=== PATIENT | female | born 1975 | race Hispanic/Latino ===

== ENCOUNTER 2022-12-28 00:30 | Day surgery (SDC) | payer MEDICAID, SELFPAY ==
[2022-12-18 15:23] VITALS: BMI 35.3
--- NOTE | 2022-12-28 11:30 | WPDANESEPPF ---
Anes - Initial Pre Proc Eval Procedure: Operation Date: 12/28/22 13:00 Proposed Procedures p Screening Colonoscopy - Cali Myrick MD Date/Time: 12/28/22 11:30 Surgeon: Cali Myrick MD Pre Op Diagnosis: neoplasm screening Patient Data Age: 47 Gender: F Height: 1.52 m Weight: 82 kg Allergies Allergy/AdvReac Type Severity Reaction Status Date / Time latex Allergy Unknown Unknown Verified 12/18/22 16:20 Home Medications Medication Instructions Recorded Confirmed Type sodium,potassium,mag sulfates 17.5 See Rx Instructions PO .COMPLEX 12/12/22 12/18/22 Rx gram-3.13 gram-1.6 gram oral soln #354 mL (Suprep Bowel Prep Kit) lisinopril 10 1 tablet PO DAILY 12/18/22 12/18/22 History mg-hydrochlorothiazide 12.5 mg tablet metformin 500 mg tablet,extended 500 mg PO DAILY 12/18/22 12/18/22 History release 24 hr simvastatin 20 mg tablet 20 mg PO HS 12/18/22 12/18/22 History Patient hx anesthesia problems: none Family hx anesthesia problems: none Results Review: All pre-operative results and documents have been reviewed as part of the pre-operative evaluation. [facility] Past Medical History Medical History (Updated 12/28/22 @ 11:31 by Juan A Finch MD) Diabetes HTN (hypertension) Hyperlipidemia Social History Social History Smoking status: Never smoker Substance use: never Substance use type: does not use Living arrangements: with family Spiritual care concerns: No Anes - Eval Final PreProcedure Day of Procedure 12/28/22 11:30 Patient weight: obese Heart: regular rate and rhythm Lungs: clear to auscultation and normal air movement Airway: Mallampati scale class II Neurological: alert and oriented Last oral intake: >/= 8 hours ASA classification: III Emergent: no Anesthetic plan: proceed Anesthesia type and monitoring: general GIVS Results Review: All pre-operative results and documents have been reviewed as part of the pre-operative evaluation. Informed Consent: The patient's anesthetic plan and its attendant risks and benefits were discussed with the patient/family/POA. Questions were solicited and answers provided to the satisfaction of the patient/family/POA.
[2022-12-28 11:52] VITALS: BP 157/82; PULSE 72; RESP 20; TEMP 36.6; O2SAT 100
--- NOTE | 2022-12-28 11:52 | P.HP_ITS ---
History of Present Illness History of Present Illness Consent: Risks, benefits, and alternatives have been discussed and questions answered. Patient agrees to proceed with procedure. Chief complaint: neoplasm screening Narrative: Arti Rose is a 47 year old female Presents for neoplasia screening colonoscopy. Patient is Nepali speaking. History is obtained with the assistance of her daughter. Patient states there weight appetite bowel movements are normal. She has had vague left lower quadrant only over the last 1 week. Patient denies any blood in her stools. Family history noncontributory. Review of Systems Review of Systems: Review of systems noncontributory. [facility] Past Medical History Medical History (Updated 12/28/22 @ 11:53 by Cali Myrick MD) Diabetes HTN (hypertension) Hyperlipidemia Social History Social History Smoking status: Never smoker Substance use: never Substance use type: does not use Living arrangements: with family Spiritual care concerns: No Meds Home Medications and Allergies Home Medications Medication Instructions Recorded Confirmed Type lisinopril 10 1 tablet PO DAILY 12/18/22 12/28/22 History mg-hydrochlorothiazide 12.5 mg tablet metformin 500 mg tablet,extended 500 mg PO DAILY 12/18/22 12/28/22 History release 24 hr simvastatin 20 mg tablet 20 mg PO HS 12/18/22 12/28/22 History Allergies Allergy/AdvReac Type Severity Reaction Status Date / Time latex Allergy Unknown Unknown Verified 12/28/22 11:48 Exam Narrative: Physical exam reveals patient be alert. Vital signs stable. HEENT exam is unremarkable. Patient is anicteric. Lungs are clear to auscultation and percussion. Heart is without murmur or extra sounds. Abdominal exam bowel sounds present soft nontender with no organomegaly. Digital external rectal exam is normal. Assessment and Plan Assessment and plan (1) Encounter for screening colonoscopy: Code(s): Z12.11 - Encounter for screening for malignant neoplasm of colon Status: Acute Assessment and Plan: Patient presents today for screening colonoscopy. Further recommendations may be given after endoscopy. Because of vague left lower quadrant pain suggest initial a trial of fiber supplements. Further recommendations if findings are identified on colonoscopy or if pain persists long-term.
[2022-12-28] MEDS: LACTATED RINGERS 1,000 ML 150 ML IV CONT (12:04)
[2022-12-28 12:09] LABS: Glucose Point of Care 77 mg/dl (65-105)
[2022-12-28 12:29] VITALS: BP 113/66; PULSE 68; RESP 14; O2SAT 100
[2022-12-28 12:39] VITALS: BP 123/69; PULSE 68; RESP 15; O2SAT 100
[2022-12-28 12:49] VITALS: BP 139/107; PULSE 60; RESP 19; O2SAT 100
== END 2022-12-28 13:14 | disposition home or self-care (01) ==
PROVIDERS: PCP Physician Assistant; Visit Provider Internal Medicine Gastroenterology
PROC: 0DJD8ZZ Inspection of Lower Intestinal Tract, Via Natural or Artificial Opening Endoscopic (ICD-10-PCS; CPT 45378; principal; 2022-12-28 13:00)
DX: Z12.11 Encounter for screening for malignant neoplasm of colon (principal); K63.89 Other specified diseases of intestine; I10 Essential (primary) hypertension; E11.9 Type 2 diabetes mellitus without complications; E78.5 Hyperlipidemia, unspecified
CPT/HCPCS: 45378; 82948; J2704; J7120

== ENCOUNTER 2023-01-04 07:59 | Outpatient (CLI) | payer MEDICAID, SELFPAY ==
--- NOTE | ~2023-01-04 | CT_ITS ---
CT of the Abdomen and Pelvis: Indication: Appendiceal mass Technique: 2.5 mm axial scans were obtained through the abdomen and pelvis following intravenous adm inistration of 100 cc of Omnipaque 350. Dose reduction technique was used on this scan by utilizing a utomated exposure control and iterative reconstruction technique. The dose-length product (DLP) was 7 09.00 mGy-cm. Findings: Scans through the lung bases are unremarkable. The liver, spleen, pancreas, gallbladder, adrenals and kidneys are within normal limits. No evidence of aortic aneurysm. No lymphadenopathy. No bowel obstruction or bowel wall thickening. There is dilatation of the base of the appendix at its junction with the cecum to 2 cm in diameter, with the remainder of the appendix mildly prominent at 9-10 mm in diameter. No periappendiceal inflammatory change identified. No definite mural nodularity or mass lesion clearly identified on this exam. Images through the pelvis were performed. Urinary bladder unremarkable. 2.9 cm left ovarian cyst pres ent. No ascites. 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 2.9 cm left ovarian cyst. Reviewed, dictated and finalized at location . Impression: Dilated appendix without inflammatory change, consistent with appendiceal mucoc hollie. 2.9 cm left ovarian cyst.
[2023-01-04 08:26] LABS: Estimated Glomerular Filt Rate > 60
== END 2023-01-04 08:00 | disposition home or self-care (01) ==
LOC: ANHIMG 08:04
PROVIDERS: PCP Physician Assistant; Visit Provider Internal Medicine Gastroenterology
DX: K38.8 Other specified diseases of appendix (principal); N83.202 Unspecified ovarian cyst, left side
CPT/HCPCS: 74177; Q9967

== ENCOUNTER 2023-01-14 19:39 | Emergency (ER) | payer MEDICAID, SELFPAY ==
[2023-01-14 20:41] VITALS: BP 148/80; PULSE 88; RESP 16; TEMP 36.6; O2SAT 100
[2023-01-14 21:06] LABS: Basophils Percent Auto 0.4 % (0.2-1.2); Eosinophils Absolute Auto 0.2 K/mm3 (0-0.3); Hematocrit 38.7 % (37.0-47.0); Immature Granulocyte Absolute 0.04 K/mm3 (0.00-0.031); Immature Granulocyte Percent A 0.4 % (0-0.5); Lymphocytes Absolute Auto 1.76 K/mm3 (0.9-3.2); Lymphocytes Percent Auto 15.6 % (18.3-44.2); Mean Corpuscular HGB Conc 33.6 g/dl (32-36); Mean Corpuscular Volume 86.2 fl (80-100); Mean Platelet Volume 10.4 fl (7.4-10.4); Monocytes Absolute Auto 0.6 K/mm3 (0.1-0.6); Monocytes Percent Auto 5.3 % (2.6-8.5); Neutrophils Absolute Auto 8.6 K/mm3 (1.3-6.7); Neutrophils Percent Auto 76.3 % (45.5-73.1); Platelet Count Result 312 k/mm3 (150-375); Red Blood Count 4.49 M/mm3 (4.2-5.4); Red Cell Distribution Width 13.2 % (11.5-14.5); White Blood Count 11.3 K/mm3 (4.5-10.0)
[2023-01-14 21:16] LABS: Alanine Aminotransferase 22 U/L (6-35); Albumin Level 4.5 g/dL (3.5-5.1); Alkaline Phosphatase 102 U/L (38-126); Anion Gap 9 mmol/L (8-16); Aspartate Amino Transferase 26 U/L (14-36); Bilirubin,Total 0.5 mg/dL (0.2-1.3); Blood Urea Nitrogen 8 mg/dL (7-17); Calcium 8.9 mg/dL (8.4-10.2); Carbon Dioxide 28 mmol/L (22-30); Chloride 102 mmol/L (98-107); Estimated Glomerular Filt Rate > 60; Glucose 119 mg/dL (65-110); Lipase 96 U/L (23-300); Potassium 3.8 mmol/L (3.4-5.0); Sodium 139 mmol/L (137-145)
[2023-01-14 22:16] LABS: Appearance Urine Clear (Clear); Bilirubin Urine Negative (Negative); Blood Urine Negative (Negative); Color Urine Yellow (Yellow); Glucose Urine UA Negative (Negative); Ketones Urine Negative (Negative); Leukocyte Esterase Ur Negative LEU/UL (Negative); Nitrate Urine Negative (Negative); Protein Urine Negative (Negative); Specific Grav Ur 1.008 (1.001-1.035); Urobilinogen Urine 0.2 mg/dL (<2.0); pH Urine 6.5 (5.0-9.0)
[2023-01-14 22:20] LABS: Add Urine Microscopic? NO
[2023-01-14 22:23] VITALS: BP 152/93; PULSE 78; RESP 14; TEMP 36.6; O2SAT 100
--- NOTE | 2023-01-15 01:32 | PC.NURSE ---
This RN apologized to pt for continued wait and asked if she needed anything. Offered to ask for pain medication while she waits to be seen by ER provider. Pt declines and states she wishes to leave. Informed pt of risks of leaving such as pain, worsening of condition, and . Instructed pt that if she starts to feel worse or develop new symptoms to seek medical attention. Pt verbalized understanding, signed AMA form, and ambulated out of department with steady gait accompanied by her daughter.
[2023-01-15 01:35] VITALS: BP 154/87; PULSE 87; RESP 18; O2SAT 99
== END 2023-01-15 01:38 | disposition left against medical advice (07) ==
LOC: ANHED 01-15 00:50
PROVIDERS: Emergency Provider Emergency Medicine; PCP Physician Assistant
DX: R10.9 Unspecified abdominal pain (principal)
CPT/HCPCS: 36415; 80053; 81003; 81025; 83690; 85025; 99199

== ENCOUNTER 2023-01-21 11:54 | Outpatient (CLI) | payer MEDICAID, SELFPAY ==
--- NOTE | 2023-01-21 13:46 | ECG_ITS ---
Measurements Intervals [place] Rate: P: [place]: QRS: QRSD: T: QT: QTc: Interpretive Statements SINUS RHYTHM NONSPECIFIC ST AND T WAVE ABNORMALITY NO PRIOR ECG AVAILABLE FOR COMPARISON Electronically Signed On 01-22-2023 15:00:10 CDT by Kala Mcgee M.D.
== END 2023-01-21 11:55 | disposition home or self-care (01) ==
PROVIDERS: PCP Physician Assistant; Visit Provider Surgery
DX: Z01.810 Encounter for preprocedural cardiovascular examination (principal); I10 Essential (primary) hypertension; R94.31 Abnormal electrocardiogram [ECG] [EKG]
CPT/HCPCS: 93005

== ENCOUNTER 2023-01-25 00:50 | Day surgery (SDC) | payer MEDICAID, SELFPAY ==
--- NOTE | 2023-01-21 12:43 | PC.NURSE ---
Report to the Outpatient Waiting Room, entrance under the green pavilion located off [facility], at time __1100 AM on date 01/25/23 . Planned Procedure Time: _1:00 PM . Time changes happen often and if your time is changed the preop area will call you the afternoon before. - You and your visitor will be asked to self-screen and do not enter if you have any COVID symptoms. - Only one visitor is requested with a max of two and NO children visitors are allowed at this time. - The patient visitor may be requested to leave or wait in car when not with patient due to distancing restrictions. - A mask is optional within the hospital at this time. Patients may have clear liquids (water, carbonated beverages, clear teas, apple juice) until 3 hours prior to surgery with a maximum of 20 ounces. - No food from midnight until time of surgery - Infants may have breast milk until 4 hours before surgery, formula 6 hours prior to surgery. - Children will be allowed to drink immediately following surgery. If applicable, please bring a bottle or sippy cup to assist with drinking. Juice, water, soda, and popsicles are readily available. For infants on formula, please bring formula the day of surgery. Pacifiers are allowed. Take the following medications with a SIP of water the morning of surgery: ____NONE DO NOT STOP ANY OF YOUR OTHER PRESCRIPTION MEDICATIONS PRIOR TO SURGERY ?EXCEPT THE FOLLOWING Medications to discontinue per physician CALCIUM WITH VITAMIN D HOLD 3 DAYS PRE OP.LAST DOSE 01/21/23 Please no make-up, nail paraguayan, hairspray, perfume, deodorant, or body powder the day of surgery. No jewelry (including any body piercings) or valuables the day of surgery, leave them at home. Please take a shower or bath the night before, or the morning of, surgery with an antibacterial soap. Wear comfortable, loose fitting clothing. Children are encouraged to wear pajamas. - Jewelry must be removed prior to entering the operating room. Rings and piercings that are not removed may be cut off. - The hospital will not accept responsibility for valuables. - Please leave all valuables, including medications, at home the day of surgery. If you are going home after surgery, a licensed cart driver must drive you home. - NO public transportation without another adult if you receive anesthesia. - We recommend that an adult stay with you for 24 hours following discharge. - We also recommend that you do not drive, make important decision, drink alcoholic beverages, or take any drugs that were not prescribed by your health care provider for at least 24 hours after your discharge time. For Pediatric surgeries, we recommend two adults accompany the child home. Follow any additional instructions given to you from your surgeon. If you or anyone in your household have experienced Covid symptoms in the past week, please notify your surgeon or the nurse liaison at the phone number below for possible testing. VERBAL AND WRITTEN instructions given to _PATIENT VIA SERVER PROGRAMMER SAROJ # [id number] and asked if any additional questions and then verbalized understanding. Patient advised to call surgeon office or pre surgery nurse liaison [phone] if any additional questions.
[2023-01-21 13:09] VITALS: BP 138/90; PULSE 83; RESP 18; TEMP 37; O2SAT 100; BMI 34.5
--- NOTE | 2023-01-24 16:22 | WPDANESEPPF ---
Anes - Initial Pre Proc Eval Procedure: Operation Date: 01/25/23 08:30 Proposed Procedures p Laparoscopic Appendectomy, Possible Open - Jose Osullivan DO Date/Time: 01/24/23 16:22 Surgeon: Jose Osullivan DO Pre Op Diagnosis: Mass Appendix, Abnormal CT of Abdomen Patient Data Age: 47 Gender: F Height: 1.52 m Weight: 80.2 kg Last Vital Signs Temp 37.0 C 01/21/23 13:09 Pulse 83 01/21/23 13:09 Resp 18 01/21/23 13:09 BP 138/90 01/21/23 13:09 Pulse Ox 100 01/21/23 13:09 O2 Del Method Room Air 01/21/23 13:09 Allergies Allergy/AdvReac Type Severity Reaction Status Date / Time latex Allergy Intermediate Rash Verified 01/25/23 07:07 Home Medications Medication Instructions Recorded Confirmed Type lisinopril 10 1 tablet PO DAILY 12/18/22 01/21/23 History mg-hydrochlorothiazide 12.5 mg tablet metformin 500 mg tablet,extended 500 mg PO DAILY 12/18/22 01/21/23 History release 24 hr simvastatin 20 mg tablet 20 mg PO HS 12/18/22 01/21/23 History calcium carbonate 600 mg-vitamin 1 tablet PO DAILY 01/21/23 01/21/23 History D3 10 mcg (400 unit) tablet (Calcium 600 + D(3)) Patient hx anesthesia problems: none Family hx anesthesia problems: none Results Review: All pre-operative results and documents have been reviewed as part of the pre-operative evaluation. [facility] Past Medical History Medical History Diabetes HTN (hypertension) Hyperlipidemia Social History Social History Smoking status: Never smoker Substance use: never Substance use type: does not use Living arrangements: with family Spiritual care concerns: No Anes - Eval Final PreProcedure Day of Procedure 01/24/23 16:22 Patient weight: obese Heart: regular rate and rhythm Lungs: clear to auscultation and normal air movement Airway: Mallampati scale class II Neurological: alert and oriented Last oral intake: >/= 8 hours ASA classification: III Emergent: no Anesthetic plan: proceed Anesthesia type and monitoring: general ETT Results Review: All pre-operative results and documents have been reviewed as part of the pre-operative evaluation. Informed Consent: The patient's anesthetic plan and its attendant risks and benefits were discussed with the patient/family/POA. Questions were solicited and answers provided to the satisfaction of the patient/family/POA.
[2023-01-25] VITALS (8 sets, daily range): BP systolic 111–152; BP diastolic 61–85; PULSE 67–83; RESP 12–16; TEMP 36.3; O2SAT 96–100
[2023-01-25] MEDS: LACTATED RINGERS 1,000 ML 30 ML IV CONT ×2 (07:24→10:05)
[2023-01-25] MEDS: KETOROLAC 15 MG/ML VIAL (*BKC) IV PUSH (07:26)
[2023-01-25 07:57] LABS: Glucose Point of Care 113 mg/dl (65-105)
--- NOTE | 2023-01-25 08:37 | WPDHPUPDATE1 ---
History and Physical Update Update Date/Time: 01/25/23 08:37 History and Physical has been reviewed, including an updated exam of the patient. There are NO changes in the patient's condition. Risks, benefits, and alternatives have been discussed and questions answered. Patient agrees to proceed with procedure.
[2023-01-25] MEDS: ceFAZolin 2 GM/D5W 50 ML 2 GM/50 ML BAG IVPB (09:00)
[2023-01-25] MEDS: metroNIDAZOLE 500 MG/ISO 100ML 500 MG/100 ML BAG 100 MG IVPB (09:12)
[2023-01-25] MEDS: BUPIVACAINE/EPINEPHRINE 0.5% 50 ML VIAL 30 ML INFILTRATE (09:25)
--- NOTE | 2023-01-25 09:50 | W.PM.PROC2 ---
Procedure Note - Detailed Date of Procedure 01/25/23 Pre-op Diagnosis Mass Appendix, Abnormal CT of Abdomen Post-op Diagnosis Same Procedure Performed Laparoscopic appendectomy Surgeon Jose Osullivan, DO Anesthesia General and Local (0.5% bupivicaine with epinephrine) Indications This is a 47-year-old woman who presented with an abnormal finding of the appendix. She is experiencing right-sided abdominal pain for the past year. She underwent colonoscopy recently and was found to have a mass at the appendiceal orifice. She then underwent CT of her abdomen and pelvis which showed a dilated appendix consistent with mucocele. Discussions were made with the patient about treatment options and decision was made to proceed with laparoscopic appendectomy, possible open Findings Laparoscopic appendectomy was performed. The appendix appeared mildly dilated and was then dilated it about 2 cm at the base. The mass did appear to extend into the started the cecum, therefore when the appendix removed, this was extended onto the base cecum as well. A 60 mm echelon stapler was used to come across the end of the cecum to remove the corner of the cecum and the appendix. No other intra-abdominal abnormalities were noted. The appendix was removed and sent to the lab for pathology. Description of Procedure Procedure as well as risks, benefits, and alternatives were explained to the patient. The patient agreed to proceed. Written consent was obtained and placed in chart prior to procedure. The patient was brought back to surgical suite. She was placed supine on operating table. Time-out was done to confirm the patient and procedure. The patient was then intubated by the Anesthesia Department. Her abdomen was prepped and draped in sterile fashion using chlorhexidine prep. A 5 mm incision was made just to the left of the patient's umbilicus and a 5 mm Optiview trocar was advanced through the abdominal layers under direct visualization. Once inside the peritoneal cavity, carbon dioxide insufflation was used to create a pneumoperitoneum. The camera was inserted and the abdomen was inspected. No immediate abnormalities were identified. The patient was then placed in slight Trendelenburg position and rotated to the left. A 5 mm incision was made in the suprapubic region in midline and a 5 mm trocar was inserted under direct visualization. A 12 mm incision was made in the left lower quadrant and a 12 mm trocar was inserted under direct visualization. The right lower quadrant was carefully inspected. The cecum was identified and then this was traced back to the appendix. The appendix was identified and grasped at the mesoappendix and lifted anteriorly. Careful blunt dissection was carried out at the base of the appendix through the mesoappendix using a [place] grasper. An echelon 60 mm blue load stapler was then advanced across the end of the cecum and clamped and fired. A white reload was then clamped across the mesoappendix and fired. This freed up our appendix completely. It was then placed in an EndoCatch bag and removed through the left lower quadrant port. The staple lines were then inspected. Hemostasis appeared adequate and the staple lines appeared secure. The area was then irrigated with sterile saline. The pelvis was then carefully inspected and irrigated with sterile saline as well and the remainder of the abdomen was carefully inspected. The patient was then flattened out in bed. One final inspection was made around the abdominal cavity and no other abnormalities were seen. The left lower quadrant port was removed and a Jeff-Stiven cone was used to approximate the fascia with an 0 Vicryl simple interrupted suture. The remaining ports were then removed under direct visualization. The camera was removed and the pneumoperitoneum was released. 0.5% bupivacaine with epinephrine was infiltrated locally around each of the incisions. The skin of the incisi
[2023-01-25 10:46] LABS: Glucose Point of Care 127 mg/dl (65-105)
[2023-01-25] MEDS: fentaNYL CITRATE INJ (*CRX) 100 MCG/2 ML VIAL 25 MCG IV PUSH ×2 (11:09→11:20)
[2023-01-25] MEDS: oxyCODONE HCL (*CRX) 5 MG TAB IR PO (11:20)
== END 2023-01-25 12:40 | disposition home or self-care (01) ==
PROVIDERS: PCP Physician Assistant; Visit Provider Surgery
PROC: 0DTJ4ZZ Resection of Appendix, Percutaneous Endoscopic Approach (ICD-10-PCS; CPT 44970; principal; 2023-01-25 08:30)
DX: K38.8 Other specified diseases of appendix (principal); I10 Essential (primary) hypertension; E11.9 Type 2 diabetes mellitus without complications; E78.5 Hyperlipidemia, unspecified; E66.9 Obesity, unspecified; Z68.34 Body mass index [BMI] 34.0-34.9, adult; Z79.84 Long term (current) use of oral hypoglycemic drugs
CPT/HCPCS: 44970; 82948; 88304; 88342; A9270; J0690; J1100; J1170; J1885; J2250; J2405; J2704; J2710; J3010; J7120

== ENCOUNTER 2023-07-29 07:24 | Outpatient (CLI) | payer MEDICAID, SELFPAY ==
--- NOTE | ~2023-07-29 | CT_ITS ---
EXAMINATION: CT abdomen pelvis w con DATE: 07/29/2023 08:13 INDICATION: Left lower quadrant pain TECHNIQUE: Computed tomography (CT) of the abdomen and pelvis was performed with 100 cc Omnipaque 350 intravenous contrast. The dose-length product was 726.43 mGy-cm. Automated exposure control and iter ative reconstruction technique were employed. COMPARISON: CT dated 01/04/2023. FINDINGS: Lung bases are unremarkable. Heart size normal. No significant pleural or pericardial effus ion. Fatty infiltration of the liver. There are changes of previous appendectomy. No significant vasc ular abnormality. Trace free fluid in the pelvis. Nonobstructive bowel pattern. No evidence for diver ticulitis. No free air. Focal fatty infiltration there is a small periumbilical hernia containing fat . No evidence for malnutrition. There is bilateral sacroiliitis. Mild lumbar spondylosis with grade 1 spondylolisthesis at L5-S1 secondary to facet hypertrophy. IMPRESSION: 1. No acute abdominal abnormality. Reviewed, dictated and finalized at location B.
[2023-07-29 07:59] LABS: Estimated Glomerular Filt Rate > 60
== END 2023-07-29 07:25 | disposition home or self-care (01) ==
PROVIDERS: PCP Physician Assistant; Visit Provider Surgery
DX: R10.32 Left lower quadrant pain (principal)
CPT/HCPCS: 74177; Q9967

== ENCOUNTER 2023-10-23 14:49 | Outpatient (RCR) | payer OTHER, SELFPAY ==
--- NOTE | 2023-10-23 16:14 | PTOPEVAL1 ---
Assessment and note entered by Kavin Mariscal Evaluation Information Assessment Status Evaluation Diagnosis right ankle sprain Onset 09/13/23 Subjective Information Pt. reports she injured the right ankle on September 13. Pt. reports she was coming down steps and missed a step and slipped twisting the right ankle. Pt. reports she went to the doctor the next day. Pt. reports that she underwent xray , which was negative. She reports that she is currently having pain around the ankle and upwards toward the knee. Pain is most notable with walking. She report she does have some pain at night when laying down and uses ointment. Pt. reports that her pain has remained the same since the initial injury. Pt. reports that the ankle will typically swell later in the day. Pt. reports that her injury has made it difficult for her to complete her daily chores and is currently off work due to her injury. She reports that her goal for therapy is to be able to return to walking normally. Reported Pain Level Pain Score 8: Self Report Assessment PT Clinical Summary Pt. is a 47 year old female who enters the clinic regarding right ankle sprain. Pt. requires use of an filenet architect during treatment. She presents with indication of right ankle inversion sprain. Post Rx she does describe some issues in regards to sensation at the lateral right ankle. She currently presents with impaired gait, impaired right ankle ROM, impaired l.e. strength and pain. Continued skilled PT is indicated in order to improve these areas to allow the pt. to be able to return to all normal IADL's without pain or limitation. Plan of Care Interventions Electrical Stimulation,Hot Pack/Cold Pack,Manual Therapy,Neuro Re-education,Patient/Caregiver Educati,Therapeutic Activities,Therapeutic Exercise PT Services Indicated Yes Treatment Frequency and 2x/week x 8 visits Duration These treatments will address the objective and functional deficits as defined above. The patient will be advanced safely and appropriately in order for the patient to progress towards his/her prior level of function. Additional exercises will be introduced and as well as a comprehensive home exercise program upon discharge, if needed, ?to ensure carryover of functional gains achieved in the clinic. This treatment plan has been reviewed and agreement upon by the patient.
--- NOTE | 2023-10-23 16:28 | OPREHPOC ---
Outpatient Therapy Plan of Care This is a Multidisciplinary Plan of Care that may contain components documented by all disciplines (PT, OT, and ST.) PT Problem 1 PT Problem #1 Knowledge Deficit PT Goal 1 Goal Pt. will be independent with a HEP addressing ROM jew at the right ankle. Target Visit 2 PT Problem 2 PT Problem #2 Impaired Range of Motion PT Goal 1 Goal -Pt. will achieve 60 degrees PF, 10 degrees DF, 40 degrees inversion and 16 degrees eversion active ROM at the right ankle Target Visit 8 PT Problem 3 PT Problem #3 Impaired Strength PT Goal 1 Goal Pt. will present with normal right ankle PF strength completing 10 single limb heel raises on right without pain. Target Visit 8 PT Problem 4 PT Problem #4 Impaired Gait PT Goal 1 Goal Pt. will ambulate for duration of 6 minutes over a distance of 1000' or greater demonstrating no deviation in gait. Target Visit 8
--- NOTE | 2023-10-30 09:53 | PCPTNOTE ---
Pt's visit was cancelled today due to no insurance auth.
--- NOTE | 2023-11-06 08:46 | PTOPDC ---
Assessment and note entered by Kavin Mariscal Discharge Information Assessment Status Discharge - Pt Not Present Diagnosis right ankle sprain Onset 09/13/23 Subjective Information Assessment PT Clinical Summary Insurance denied all pt. treatment. She completed her initial evaluation and was provided a HEP addressing ROM anabaptism and gentle strengthening. Insurance provided no appeal process and therefore pt. will be discharged from our care. The front office contacted the pt. and she was comfortable completing exercise on her own at this time. Refer to the initial evaluation for discharge status. Plan of Care PT Services Indicated D/C from PT at this time.
== END 2023-11-06 12:18 | disposition home or self-care (01) ==
LOC: ANHPT 14:49
PROVIDERS: PCP Physician Assistant; Visit Provider Physician Assistant
DX: S93.401D Sprain of unspecified ligament of right ankle, subsequent encounter (principal)
CPT/HCPCS: 97110; 97161

== ENCOUNTER 2025-01-21 13:07 | Emergency (ER) | payer OTHER, SELFPAY ==
--- NOTE | ~2025-01-21 | CT_ITS ---
History: Headache PROCEDURE: CT head without contrast. COMPARISON: None TECHNIQUE: Axial imaging of the head performed from the skull base to the vertex without IV contrast. Sagittal a nd coronal reformations obtained. DLP: 605 mGy-cm FINDINGS: The ventricles are normal in size, shape and position. There is no mass, mass effect or midline shift. There is no abnormal extra-axial fluid collection or intracranial hemorrhage. Visualized paranasal sinuses are clear. The mastoid air cells are well aerated. No acute displaced fractures within the overlying cranium. Impression: No acute intracranial hemorrhage or suspicious mass effect. Reviewed, dictated and finalized at location A. Impression: No acute intracranial hemorrhage or suspicious mass effect.
[2025-01-21 13:12] VITALS: BP 181/84; PULSE 88; RESP 18; TEMP 36.6; O2SAT 100
--- OUTSIDE RECORDS SUMMARY | 2025-01-21 13:24 | XMS_ITS | Clinical Summary ---
Author Organization [facility] Address [address] [place] [id number] Care Team Providers Care Electronic Bench Technician Name Role Phone None, Provider MD Primary Care Provider Unavaila ble Allergies No known active allergies Social History Tobacco Use Types Packs/Day Years Used Date Smoking Tobacco: Never Smokeless Tobacco: Never Alcohol Use Standard Drinks/Week Comments Never 0 (1 standard drink = 0.6 oz pur e alcohol) AUDIT-C Answer Date Recorded Q1: How often do you have a drink containing alc ohol? Never 02/23/2021 Average Number of Drinks Not on file 021 Frequency of Binge Drinking Not on file 03/2021 Comments Unknown Sex and Gender Information Value Date Recorded Sex Assigned at Not on file Legal Sex Female 4:16 PM CDT Gender Identity Not on file Sexual Orientation Not on file Last Filed Vital Signs Vital Sign Reading Time Taken Comments Blood Pressure 156/85 02/23/2021 5:52 PM CDT Pulse 112 02/23/2021 4:23 PM CDT Temperature 37.2 C (98.9 F) 02/23/2021 4:23 PM CDT Respiratory Rate 17 02/23/2021 5:52 PM CDT Oxygen Saturation 99% 02/23/2021 5:52 PM CDT Inhaled Oxygen Concentration - - Weight 82.8 kg (182 lb 8.7 oz) 02/23/2021 4:23 P M CDT Height 152 cm (4' 11.84 ) 02/23/2021 4:23 PM CDT Body Mass Index 35.84 02/23/2021 4:23 PM CDT Plan of Treatment Health Maintenance Due Date Last Done Comments Cervical Cancer Screening Pa p Smear (Age 30 to 64) Every 3 Years 1975 Colorectal Cancer Screening Colonoscopy (10 Years) 1975 Annual Physical 1978 Hepatitis C 1993 DTaP, Tdap and Td Vaccines ( 1 - Tdap) 1994 Hepatitis B Vaccines (1 of 3 - 19+ 3-dose series) 1994 Cervical Cancer Screening Pa p with HPV Testing (Age 30 to 64) Every 5 Years 2005 Cervical Cancer Screening with HPV 2005 Mammogram Screening 2015 COVID-19 Vaccine (2023-2 5 season) 2024 Meningococcal B Vaccine Aged Out No l onger eligible based on patient's age to complete this topic Meningococcal Vaccine Aged Out No tyrese janis eligible based on patient's age to complete this topic Pneumococcal Vaccine: Pediat rics (0 to 5 Years) and At-Risk Patients (6 to 64 Years) Aged Out No longer eligible b ased on patient's age to complete this topic RSV Immunizations Under 20 Months Aged Out No longer eligible based on patient's age to complete this topic Care Teams Electronic Bench Technician Relationship Specialty Start Date End Date None, Provider, PCP - General 02/23/21
--- OUTSIDE RECORDS SUMMARY | 2025-01-21 13:24 | XMS_ITS | Data Portability ---
Author Organization [facility] Address [address] [place] [address] Care Team Providers Care Bead Maker Name Role Phone MAXIMINO MYERS Rn Wellness SAROJ JACKSON Primary Care Provider Assessment No assessment recorded. Plan of Treatment Reminders Order Date Submit Date Provider Last Modified By Organization Details Last Modified Time Details Appointments NEW PATIENT 2024 01:00P M JOSEFA HAYNES PA-C Not available Not available Not available ANY 2024 09:30A M RAVI BUENROSTRO Not available Not available Not available ANY 2024 11:00A M RAVI BUENROSTRO Not available Not available Not available Lab None recorded. Referral None recorded. Procedures None recorded. Surgeries None recorded. Imaging unlisted imaging order [address] (Imaging), [address] [place] [address], [place], [address], 12/30/2024 08:22:12 Medication Orders omeprazol e 20 mg capsule,d elayed release 2023 024 [facility], [address] [place] [address], [id number], 07/22/2024 13:28:44 naproxen 500 mg tablet 2023 024 [facility], [facility], [place], [id number], 07/15/2024 13:44:00 Medrol (Jayme) 4 mg tablets in a dose pack 2023 024 [facility], [address] [place] [address], [id number], 07/16/2024 14:09:52 triamcino lone acetonide 0.1 % topical cream 2023 024 [facility], [address] [place] [address], [id number], 07/15/2024 13:43:58 duloxetin e 30 mg capsule,d elayed release 2023 024 [facility], [address] [place] [address], [id number], 07/16/2024 14:09:54 naproxen 500 mg tablet 2023 024 [facility], [address] [place] [address], [id number], 05/19/2024 17:06:30 Medrol (Jayme) 4 mg tablets in a dose pack 2023 024 [facility], [address] [place] [address], [id number], 05/19/2024 17:06:30 triamcino lone acetonide 0.1 % topical cream 2023 024 [facility], [address] [place] [address], [id number], 05/19/2024 17:06:29 duloxetin e 60 mg capsule,d elayed release 2023 024 [facility], [address] [place] [address], [id number], 07/16/2024 14:09:50 Kenalog 40 mg/mL suspensio n for injection 2023 [email or web address] Not available 05/27/2024 15:13:09 naproxen 500 mg tablet 2023 [facility], [address] [place] [address], [id number], 05/05/2024 17:13:50 Medrol (Jayme) 4 mg tablets in a dose pack 2023 [facility], [address] [place] [address], [id number], 05/07/2024 15:23:08 triamcino lone acetonide 0.1 % topical cream 2023 [facility], [address] [place] [address], [id number], 05/05/2024 17:13:53 duloxetin e 30 mg capsule,d elayed release 2023 [facility], [address] [place] [address], [id number], 05/07/2024 15:23:10 duloxetin e 60 mg capsule,d elayed release 2023 [facility], [address] [place] [address], [id number], 05/07/2024 15:23:10 Kenalog 40 mg/mL suspensio n for injection 2023 [email or web address] Not available 05/06/2024 10:04:26 naproxen 500 mg tablet 2023 [facility], [address] [place] [address], [id number], 04/14/2024 17:05:21 Medrol (Jayme) 4 mg tablets in a dose pack 2023 [facility], [address], [place], [id number], 04/14/2024 17:05:22 triamcino lone acetonide 0.1 % topical cream 2023 024 [facility], [address] [place] [address], [id number], 04/14/2024 17:05:25 gabapenti n 600 mg tablet 2023 024 [facility], [address] [place] [address], [id number], 04/14/2024 17:05:22 Kenalog 40 mg/mL suspensio n for injection 2023 [email or web address] Not available 04/15/2024 14:30:57 Patient TargetsNo targets recorded. Patient InstructionsNo instructions recorded. Reason for Referral None Reported. Results Created Date Observation Date Name Description Value Unit Range Abnormal Flag Note LastModifiedBy Organization Detail LastModifiedTime 03/26/20 24 03/25/2024 lab* No observ ation record ed. [email or web address] [facility] [address] [place], [address], 04/02/2024 08:17:06 03/26/20 24 03/25/2024 lab* No observ ation record ed. [email or web address] [facility] [address] [place], [address], 04/02/2024 08:17:17 Result Notes None recorded. Problems Name Problem SNOMED Code Status Onset Date Resolution Date Notes Provider Name and Address Organization Details Recorded Time Blood glucose outside reference range 520210162 Active 2020 eZ Dillon MD Attn: Kandice webster,[address] [place], [address], [facility] 11:53:24 Left lower quadrant pain 986278617 Active 2020 Ze Dillon MD Attn: Accountin g,[address] [facility], [place], [address], [place] [facility] 11:53:37 Blurring of visual image 912693811 Active 2020 Ze Dillon MD Attn: Accountin g,[address] [facility], [place], [address], [place] [facility] 11:53:48 Obesity 333221424 Active 2020 Ze Dillon MD Attn: Accountin g,[address] [facility], [place], [address], [place] [facility] 11:53:58 Body mass index 30+ - obesity 284754960 Active 2020 34.4 Ze Dillon MD Attn: Accountin g,[address] [facility], [place], [address], [place] [facility] 11:54:29 Bilateral heel pain 6887443552737 9108 Active 2020 Ze Dillon MD Attn: Accountin g,[address] [facility], [place], [address], [place] [facility] 16:59:41 At increased risk for latex allergy response 485357036 Active 2020 Ze Dillon MD Attn: Accountin g,[address] [facility], [place], [address], [place] [facility] 1 17:03:36 Active immunizatio n Active 2020 Ze Dillon MD Attn: Accountin g,[address] [facility], [place], [address], [place] - [facility] 1 17:03:55 Plantar fasciitis of right foot 5724178870909 9101 Active 2021 RAVI BUENROSTRO Attn: Accountin g,[address] [facility], [place], [address], [place] [facility] 2 10:53:08 Type 2 diabetes mellitus 00446923 Active 2022 RAVI BUENROSTRO Attn: Kandice eleanor,[address] [facility], [place], [address], [place] - [facility] 3 09:34:21 History of surgery 595429017 Active 2022 RAVI BUENROSTRO Attn: Accountskye eleanor,[address] [facility], [place], [address], [place] [facility] 3 15:59:36 Left upper quadrant pain 272044387 Active 2022 RAVI BUENROSTRO Attn: Accountskye eleanor,[address] [facility], [place], [address], [place] [facility] 3 08:23:07 Muscle pain 51177714 Active 2022 RAVI BUENROSTRO Attn: Accountskey webster,[address] [facility], [place], [address], [place] [facility] 3 08:23:08 Mass of left breast 8336126000126 9103 Active 2022 RAVI BUENROSTRO Attn: Accountskye eleanor,[address] [facility], [place], [address], [place] [facility] 3 09:07:10 Sprain of right ankle 6673821005614 9105 Active 2022 RAVI BUENROSTRO Attn: Accountskye eleanor,[address] [place], [address], [place] [facility] 3 15:09:41 Major depressive disorder 191029794 Active 2023 RAVI BUENROSTRO Attn: Accountskye webster,[address] [facility], [place], [address], [place] [facility] 4 09:07:44 Female stress incontinenc e 58228452 Active 2023 RAVI BUENROSTRO Attn: Accountskye webster,[address] [place], [address], [place] [facility] 4 09:33:10 Benign neoplastic disease 88873955 Active Merrill Gupta MD Attn: Kandice webster,[address] [facility], [place], [address], [facility] - [facility] 4 16:36:19 Problem Notes None recorded. Procedures Surgical History Date Name Laterality Status Provider Name and Address Organization Details Recorded Time 4 Injection completed MAT REYNAGA DPM [address], [place], [address], [facility] - [facility] 05/19/2024 15:52:23 4 Injection completed MAT REYNAGA DPM [address], [place], [address], [facility] - [facility] 05/05/2024 16:17:18 4 Injection completed MAT REYNAGA DPM [address], [place], [address], [facility] - [facility] 04/14/2024 16:42:49 3 Date of Last Mammogram completed Yumiko Childress MA [place] - [facility] 10/09/2024 11:19:53 1 Date of Last Pap Smear completed RAVI BARAJAS Attn: Accounting,[address] [place], [address], [facility] - [facility] 03/09/2021 11:10:57 4 Generic Procedure completed Merrill Gupta MD Attn: Accounting,[address] [place], [address], [place] [facility] 09/10/2014 16:36:19 Imaging Results Imaging Date Name Status LastModified by Organizatio n Details LastModified Time 03/25/2024 lab* completed [email or web address] [facility] [address] [facility], [place], [address], 04/02/2024 08:17:06 03/25/2024 lab* completed [facility] [address] [place], [address], 04/02/2024 08:17:17 Procedure Notes None recorded. Medical Equipment None Reported. Allergies No known drug allergies Medications Name Sig Start Date Stop Date Status Note LastModified by Organization Details LastModified Time multivitami n tablet Take 1 tablet every day by oral route. 2020 active Not Available Not Available Not Avai lable amoxicillin 500 mg capsule Take 1 capsule every 8 hours by oral route for 7 days. 03/03 completed Not Available Not Available Not Available Miralax 17 gram/dose oral powder Take 17 g every day by oral route. 06/04 completed Not Available Not Available Not Available metformin 500 mg tablet Take 1 tablet every day by oral route for 90 days. 2024 active Not Available Not Available Not Avai lable venlafaxine ER 37.5 mg capsule,ext ended release 24 hr TAKE ONE CAPSULE BY MOUTH AT BEDTIME active Not Available Not Available No t Available venlafaxine ER 75 mg capsule,ext ended release 24 hr TAKE ONE CAPSULE BY MOUTH EVERY MORNING active Not Available Not Available No t Available gabapentin 600 mg tablet Take 1 tablet 3 times a day by oral route for 30 days. 2023 active Not Available Not Available Not Avai lable hydrocodone 5 mg-acetamin ophen 325 mg tablet TAKE 1 TABLET BY MOUTH EVERY 4 HOURS NEEDED FOR PAIN 06/04 completed Not Available Not Available Not Available Anucort-HC 25 mg suppository INSERT 1 SUPPOSITO RY RECTALLY THREE TIMES DAILY 06/04 completed Not Available Not Available Not Available peg-electro lyte solution 420 gram oral solution TAKE DIRECTED active Not Available Not Available No t Available triamcinolo ne acetonide 0.1 % topical cream APPLY A THIN LAYER TO THE AFFECTED AREA(S) BY TOPICAL ROUTE 2 TIMES PER DAY active Not Available Not Available No t Available amoxicillin 500 mg tablet TAKE ONE TABLET BY MOUTH EVERY 8 HOURS UNTIL ALL TAKEN 03/03 completed Not Available Not Available Not Available Kenalog 40 mg/mL suspension for injection Take 0.25 mL by injection route. 2023 active Not Available Not Available Not Avai lable benzonatate 100 mg capsule Take 1 capsule 3 times a day by oral route. 06/04 completed Not Available Not Available Not Available simvastatin 20 mg tablet TAKE ONE TABLET BY MOUTH EVERY DAY AT BEDTIME FOR CHOLESTER OL active Not Available Not Available No t Available Norvasc 5 mg tablet Take 1 tablet every day by oral route. 03/09 completed Not Available Not Available Not Available triamcinolo ne acetonide 0.1 % topical ointment APPLY A THIN LAYER TO THE AFFECTED AREA(S) BY TOPICAL ROUTE 2 TIMES PER DAY 2021 active Not Available Not Available Not Avai lable gabapentin 300 mg capsule TAKE ONE CAPSULE BY MOUTH THREE TIMES DAILY EVERY MORNING & AT3PM & AT BEDTIME FOR PAIN MANAGEMEN T active Not Available Not Available No t Available omeprazole 20 mg capsule,del ayed release Take 1 capsule every day by oral route for 90 days. 2023 active Not Available Not Available Not Avai lable lisinopril 10 mg-hydrochl orothiazide 12.5 mg tablet TAKE ONE TABLET BY MOUTH EVERY MORNING FOR FLUID RETENTION AND FOR BLOOD PRESSURE 2024 active Not Available Not Available Not Avai lable methylpredn isolone 4 mg tablets in a dose pack Follow the package direction s active Not Available Not Available No t Available ondansetron 4 mg disintegrat ing tablet DISSOLVE 1 TABLET IN MOUTH EVERY 8 HOURS NEEDED 03/09 completed Not Available Not Available Not Available naproxen 500 mg tablet TAKE 1 TABLET BY MOUTH TWICE DAILY active Not Available Not Available No t Available amoxicillin 875 mg-potassiu m clavulanate 125 mg tablet Take 1 tablet every 12 hours by oral route for 7 days. 11/30 completed Not Available Not Available Not Available duloxetine 30 mg capsule,del ayed release TAKE ONE CAPSULE ONCE EVERY DAY active Not Available Not Available No t Available duloxetine 60 mg capsule,del ayed release Take 1 capsule every day by oral route for 30 days. 2023 active Not Available Not Available Not Avai lable Calcium with Vitamin D 600 mg-10 mcg (400 unit) tablet Take 1 tablet twice a day by oral route. 2021 active Not Available Not Available Not Avai lable OneTouch Verio test strips Take 1 strip every day by miscell. route for 30 days. 2021 active Not Available Not Available Not Avai labbar Trulicity 0.75 mg/0.5 mL subcutaneou s pen injector Inject 0.75 mg every week by subcutane ous route. active Not Available Not Available No t Available Flonase Allergy Relief 50 mcg/actuati on nasal spray,suspe nsion Petroleum 1 spray every day by intranasa l route. 11/30 completed Not Available Not Available Not Available 24 1 mg-20 mcg (24)/75 mg (4) tablet Take 1 tablet every day by oral route. 06/04 completed Not Available Not Available Not Available Ozempic 0.25 mg or 0.5 mg (2 mg/1.5 mL) subcutaneou s pen injector Inject 0.25 mg every week by subcutane ous route. 2023 active Not Available Not Available Not Nesha labbar ID NOW COVID-19 Test Kit USE DIRECTED 11/30 completed Not Available Not Available Not Available Vitals Date Recorded Body height Body mass index (BMI) Body weight Heart rate Body temperature Systolic blood pressure Diastolic blood pressure Provider Name and Address Organization Details Last Updated DateTime 4 154.94 cm 36.1 kg/m2 24520.2 2 g 74 /min 97.8 [degF] 131 mm[Hg] 77 mm[Hg] Lesley Parikh [place] - [facility] 4 16:11:07 Date Recorded Body height Body mass index (BMI) Body weight Heart rate Body temperature Pain severity - 0-10 verbal numeric rating [Score] - Reported Systolic blood pressure Diastolic blood pressure Provider Name and Address Organization Details Last Updated DateTime 4 154.94 cm 35.9 kg/m2 38728.2 7 g 77 /min 98.3 [degF] 5 174 mm[Hg] 88 mm[Hg] Pallavi Austin MA [place] [facility] 4 15:55:22 Date Recorded Body height Body mass index (BMI) Body weight Heart rate Body temperature Pain severity - 0-10 verbal numeric rating [Score] - Reported Systolic blood pressure Diastolic blood pressure Provider Name and Address Organization Details Last Updated DateTime 4 154.94 cm 36.1 kg/m2 77443.4 2 g 75 /min 98.3 [degF] 5 135 mm[Hg] 76 mm[Hg] Pallavi Austin MA [facility] 4 15:14:45 Date Recorded Body height Body mass index (BMI) Body weight Heart rate Body temperature Pain severity - 0-10 verbal numeric rating [Score] - Reported Systolic blood pressure Diastolic blood pressure Provider Name and Address Organization Details Last Updated DateTime 4 154.94 cm 36.3 kg/m2 07971.8 1 g 85 /min 98.3 [degF] 0 156 mm[Hg] 88 mm[Hg] Pallavi Austin MA [facility] 4 15:29:05 Date Recorded Body height Body mass index (BMI) Body weight Heart rate Oxygen saturation Oxygen saturation in Arterial blood by Pulse oximetry Systolic blood pressure Diastolic blood pressure Provider Name and Address Organization Details Last Updated DateTime 4 154.94 cm 36.1 kg/m2 43681.1 4 g 91 /min 99 % 99 % 138 mm[Hg] 98 mm[Hg] Lesley Martinez MA [facility] 4 12:28:33 Social History Question Answer Notes LastModified by Organizat ion Details LastModified Time Tobacco Smoking Status Never Smoker Consuelo Contreras MA [facility], [facility] 03/09/2021 10:21:40 Do You Have An Advance Directive? No Information not available 03/09/2021 What Is Your Level Of Alcohol Consumption? None Information not available 03/09/2021 In The 14 Days Before Symptom Onset, Have You Had Close Contact With A Laboratory-confir med COVID-19 While That Case Was Ill? Yes [email or web address] Information not available 11/30/2022 In The 14 Days Before Symptom Onset, Have You Had Close Contact With A Person Who Is Under Investigation For COVID-19 While That Person Was Ill? Yes [email or web address] Information not available 11/30/2022 Have You Been To An Area Known To Be High Risk For COVID-19? Yes Went To ER [email or web address] Information not available 11/30/2022 What Was The Date Of Your Most Recent Tobacco Screening? 06/30/2024 Information not available 06/30/2024 What Is Your Relationship Status? Information not available 03/09/2021 Are You Sexually Active? No Information not available 03/09/2021 Do You Have Smoke And Carbon Monoxide Detectors In Your Home? Yes Information not available 03/09/2021 Are You Passively Exposed To Smoke? No Information no t available 03/09/2021 Do You Use Any Illicit Or Recreational Drugs? No Information not available 03/09/2021 Has Tobacco Cessation Counseling Been Provided? Yes [email or web address] Information not available 2021 On What Date Was Tobacco Cessation Counseling Provided? 06/30/2024 Information not available 06/30/2024 Do You Or Have You Ever Used Any Other Forms Of Tobacco Or Nicotine? No Information not available 03/09/2021 Sex: Female Functional Status None recorded. Mental Status None recorded. Family History Relationship Description Onset Age of this Age Resolved Age Notes LastModified by Organization Details LastModified Time Mother Hypertensive disorder Not available 2013 14:22:57 Mother Diabetes mellitus [email or web address] Not available 2013 14:22:57 Medical History Condition Response Heart Problems N Other N Breast Cancer N Thyroid Problems N Kidney or Bladder Problems N Lung Disease N Depression N GI Problems N Acne N Breast Problem N Eating Disorder N Anemia N Anesthesia Complications N Headaches/Migraines N Ovarian Cancer N Diabetes N Anxiety Disorder N Blood Transfusions N Arthritis N Polyps N Infertility N Acid Reflux (GERD) N Cancer N Stroke N Abuse/Domestic Violence N Asthma N Endometriosis N High Cholesterol N Hepatitis N Heart Disease N Fibromyalgia N Pre-Eclampsia N Hypertension N Osteoporosis N Kidney Disease N Gynecological History Statement/Question Response Abnormal Pap N Date of Last Mammogram 08/19/2023 Flow Heavy Date of LMP 11/08/2022 Duration of Flow (days) 4 Age at Menarche 12 Current Control Method None Age at First Child 19 Frequency of Cycle (Q days) 28 Menses Monthly Y Date of Last Pap Smear 03/09/2021 LMP Approximate Desired Control Method N/A Obstetrics History GPAL:G 5 P 4 0 1 4 Type Value Multiple Births 0 Full Term 4 Induced 1 Spontaneous 0 Premature 0 Living 4 Ectopics 0 Total 5 Immunizations Vaccine Type Date Status Note Provider Nam e and Address Organization Details Recorded Time Influenza, split virus, quadrivalent, preservative 1 completed Marcelle Irby MA [facility], [place] - [facility] 09/11/2021 17:51:11 pneumococcal polysaccharide PPV23 2 completed RAVI BUENROSTRO Attn: Accounting,[address] [facility], [place], [address], [facility] - [facility] 07/13/2022 13:59:55 Past Encounters Encounter ID Performer Location Encounter Start Date Encounter Closed Date Diagnosis/Indication Diagnosis SNOMED-CT Code Diagnosis ICD10 Code Diagnosis Note [id number] [facility] (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 -referral for screening mammogram issued for routine breast cancer screening -routine nuswab completed, treat as needed -Educated osteoporos is prevention including calcium rich diet, weight bearing exercise. Will start supplement . Abnormal u terine bleeding 5403221293 9100 N93.9 X 1 month, resolved spontaneou sly. Likely ovulatory dysfunctio n. Will follow up labs. Expectant management . 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 Obesity 739926676 E66.9 Blurring o f visual image 139914385 H53.8 [id number] MD Alana Purvis (Adult Med) [address] [place] [address] 09/11/2021 16:13:33 09/12/2021 10:37:21 Bilateral heel pain 4530548388 7181375 M79.671 M79.672 At [facility] ed risk for latex allergy response 283826468 Z91.89 Letter sent Active immunization 3387 9002 Z23 [id number] RAVI BUENROSTRO [facility] [address] [place] [address] 2021 16:34:08 11/03/2021 12:37:50 Prediabetes 268398561 R73.03 hx of predm - avoid sugary sodas, sweets, and starchy foods like bread, rice, potatoes, noodles, and tortillas- Exercise and weight loss can be very helpful Essential hypertension 65145356 I10 Today BP 150/9011/2 021 154/966/20 21 140/86 Patient has had at least 3 elevated BP readings. will initiate medication at this time. advised weight loss and diet changes. Advised to check BP regularly with a goal of <140/90, if BP consistent ly >140/90, advised to contact clinic Discussed DASH diet Advised weight loss and diet is best way to control BP Advised 30 minutes of exercise minimum daily Advised tobacco, alcohol, caffeine all increase BP Contact dermatitis 33302 004 L25.9 Apply plenty of lotion on your skin at least 3 times every day regardless if there are any dry spots or not. Eucerin, Aveeno, Lubriderm, and Vaseline Intensive Care are examples of good lotions to use; but any lotion that is fragrance free may be acceptable . Use the prescribed steroid cream twice daily for one week for excessivel y dry areas. You must stop applying the steroid cream after one week and give your skin a one week break before apply it again. Call the office if your skin is not improving in 1-2 weeks. The parents verbalized understand ing. Muscle twitch 87076113 R 25.3 left cheek x a few days [id number] Lesley Martinez MA [facility] [address] [place] [address] 11/07/2021 09:11:37 11/08/2021 07:58:57 [id number] RAVI BUENROSTRO [facility] [address] [place] [address] 11/15/2021 16:39:56 11/20/2021 09:58:38 Essential hypertension 73833862 I10 Today BP 138/88. BP controlled at home. F/u one moth. discussed weight loss to imrove glucose and htn. Advised to check BP regularly with a goal of <140/90, if BP consistent ly >140/90, advised to contact clinicDisc usserom DASH dietAdvise d weight loss and diet is best way to control BPAdvised 30 minutes of exercise minimum dailyAdvis ed tobacco, alcohol, caffeine all increase BP Diabetes mellitus 836769 09 E11.9 A1C 6.6. newly diagnosed DM. Patient has been having headaches and at [facility] time will initiate metformin. Patient was given handout I made for DM control at home and diet. We also discussed this in office. - check sugars daily; goal fasting <130 and 1-2 hours after meal <180. call office if sugars falling under 70. - discussed diet: avoid sugars, pasta, tortillas, bread, rice, potatoes - Exercise 30 min 5x week - diabetic eye exam - foot exam at next visit [id number] RAVI BUENROSTRO [facility] [address] [place] [address] 12/20/2021 16:38:10 12/22/2021 09:43:28 Essential hypertension [id number] I10 Today BP 158/90. BP controlled at home. but ran out of medication over one week ago. 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 will resend. Advised to check BP regularly with a goal of <140/90, if BP consistent ly >140/90, advised to contact clinicDisc usserom DASH dietAdvise d weight loss and diet is best way to control BPAdvised 30 minutes of exercise minimum dailyAdvis ed tobacco, alcohol, caffeine all increase BP Diabetes mellitus 271305 09 E11.9 A1C 6.6. newly diagnosed DM. Patient has been having headaches and at si time will initiate metformin. Patient was given handout I made for DM control at home and diet. We also discussed this in office. - check sugars daily; goal fasting <130 and 1-2 hours after meal <180. call office if sugars falling under 70. - discussed diet: avoid sugars, pasta, tortillas, bread, rice, potatoes - Exercise 30 min 5x week - diabetic eye exam - foot exam at next visit Pain in pelvis 05566456 R10.2 patient went to hospital for severe right lower quadrant pain, ovarian cysts shown and sent home with naproxen. she takes one daily. pain has improved but still has a dull searing pain. On exam patient is minimally tender. no rebound tenderness . Ordering US to monitor cysts. Advised ER if pain worsens to r/o ovarian torsion or appendicit is. Cyst of left ovary [id number] N83[address] [facility] at [facility] showing multiple ovarian cysts [id number] RAVI BUENROSTRO [facility] [address] [place] [address] 07/10/2022 14:35:09 07/17/2022 08:32:01 Essential hypertension [id number] I10 Today BP 140/80. BP controlled at home. but ran out of medication two days ago and needs refills. denies cp, sob Advised to check BP regularly with a goal of <140/90, if BP consistent ly >140/90, advised to contact clinicDisc ussed DASH dietAdvise d weight loss and diet is best way to control BPAdvised 30 minutes of exercise minimum dailyAdvis ed tobacco, alcohol, caffeine all increase BP Diabetes mellitus 785405 09 E11.9 A1C 6.2% (06/2022) 6.6% (oi ng well on metformin w/o s/e.eye exam: referral sentfoot exam: normal 07/11/22pps v23: 07/10/2022 tatin: non compliant, will resendACEi : Lisinopril 10mg Administra tion of pneumococcal vaccine 67237600 Z23 administer ed today HIV screening 572972742 Z11.4 Depression screening 171 676705 Z13.31 negative Obesity 112828205 E66.9 BMI 33.310 lbw eight losskeep up the good work Bilateral carpal tunnel syndrome [id number] 7973729 G56.03 - NSAID- NIGHT BRACE- F/U ONE MONTH- may need EMG and ortho referral Type 2 flaca betes mellitus 30686062 E11.9 Plantar fa sciitis of right foot [id number] 8267301 M72.2 - RICE- FROZEN WATER BOTTLE rolling x 15 mins- Naproxen- shoe inserts- avoid flip flops [id number] [facility] ([facility]EL[employer]) [address] [place] [address] 08/08/2022 15:38:54 08/14/2022 16:26:08 Uterine leiomyoma 83852858 D25.9 TVUS 12/2021 showed multiple small uterine fibroids <2cm, uterus not enlarged. Discussed the results in more detail and reassured pt of this finding. We discussed using contracept bere methods to help reduce the amount of bleeding and pelvic pain associated with her menses and she agreed to try OCP. Follow-up in 3 months to re-assess and evaluate how the medication is working to control her symptoms. Functional cyst of ovary 608647608 N83.299 TVUS showing bilateral ~1cm simple cysts/foll icles. Discussed functional ovarian cysts with the patient and provided reassuranc e and care instructio ns. OCPs for prevention as above. [id number] RAVI BUENROSTRO [facility] [address] [place] [address] 11/02/2022 12:22:49 11/07/2022 15:43:50 Acute sinusitis 20691464 J01.90 3 weeks of URI with ESQUIVEL, facial pain, congestion .PEX: Tender maxillary sinuses on exam, edematous nasal mucosa, lungs are clear, RRR- augmenting with food. she denies allergies to medication .- ibuprofen or tylenol for body aches- tessalon perles to control cough- f/u if not improving or worsening. - ER if trouble breathing, worsening chest pain, 103 fever without improvemen t with NSAID/tyle nol. Cough 63438014 R05.9 benzonatat e drops prn Obesity 068457815 E66.9 BMI 33.410 lb weight losskeep up the good work [id number] RAVI BUENROSTRO [facility] [address] [place] [address] 11/30/2022 16:05:08 12/04/2022 11:25:05 Screening for malignant neoplasm of colon 440425169 Z12.11 has pressure and new constipati on Constipation 86375117 K5 9.00 patient has had one week of abnormal BM and constipati on. She feels pressure on her bottom and passed a lot of blood in stool one week ago. This is first occurrence .PEX: abdomen soft. no masses, no pain elicited - miralax- colonoscop y Melanocytic nevus 966266 001 D22.9 small pencil point sized AK on right side of face near eye. She states it has grown. Patient reassured these are benign but would like to see dermatolog ist [id number] RAVI BUENROSTRO [facility] [address] [place] [address] 02/07/2023 12:25:51 02/07/2023 13:03:37 Type 2 diabetes mellitus 55500580 E11.9 A1C 6.3% (01/2023) 6.2% (06/2022) 6.6% (10/2021) doing well on metformin w/o s/e. eye exam: referral sent foot exam: normal 07/11/22 ppsv23: 07/10/2022 Statin: non compliant, will resend ACEi: Lisinopril 10mg HIV screening 982168747 Z11.4 History of surgery [address] harley. Had colonoscop y 12/28/22 showing appendix mass effect/ CT abd/pel w/ contrast 01/04/23 showed dilated appendix -mucocele. off work 01/25- 3. appendix surgically removed.he aling well4 small incisions in abdomen healing well without edema, erythema or drainage [id number] RAVI BUENROSTRO [facility] [address] [place] [address] 06/04/2023 15:31:47 06/04/2023 16:35:21 Type 2 diabetes mellitus 44575880 E11.9 A1C 6.0% (05/2023) 6.3% (01/2023) 6.2% (06/2022) 6.6% (10/2021) doing well on metformin w/o s/e. eye exam: has not scheduled foot exam: normal 07/11/22 ppsv23: 07/10/2022 Statin: states she is complaint now ACEi: Lisinopril 10mg Muscle pain 36790443 M79 .10 muscle pain in arms and legs that is occasional and worse after work. 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 denies joint pain, falls, swelling. She is complaint on statin now. - labs- NSAID Left upper quadrant pain 495232974 R10.12 vague LUQ pain X 2 months w.o diarrhea, constipati on, nausea, vomiting.P EX: mild pain w/o rebound tenderness on palpation to LUQ w/o spleen enlargemen t, masses palpated. [id number] RAVI BUENROSTRO [facility] [address] [place] [address] 07/01/2023 16:15:28 07/01/2023 16:37:11 Mass of left breast 3427737591 3771385 N63.20 lump in left breast palpated at 6 oclock, newUS and diagnostic ordered [id number] RAVI BUENROSTRO [facility] [address] [place] [address] 10/01/2023 16:31:40 10/04/2023 11:13:25 Obesity 398053762 E66.9 BMI 35.710 lb weight losskeep up the good work Sprain of right ankle 11 39061932 9756648 S93.401A has band at [facility] call in [facility] to [facility] xray Emotional stress 4629139 09 Z73.3 pt found out 12 year old daughter got by 20 yo maleshe is coping with stress and does have daughter in therapy and Male is in prisonshe will f/u here for talk as no access to [employer] therapy [id number] MAT REYNAGA DPM [facility] ts [address] [place] [address] 10/23/2023 10:56:50 10/24/2023 10:48:46 Sprain of right ankle 5943281489 9810188 S93.411A S93.421A The sprained area was evaluated and x-rays confirm no evidence of rupture/fr acture of the area. The patient was educated to stay off of the area, elevate, ice and keep an jefferson wrap around the area. Oral NSAIDs were discussed and recommende d. The area is to be iced and I have reviewed all offloading options. I have told the patient that is the area does not heal, I will order an MRI. I have also discussed physical therapy after the area improves to stabilize and strengthen the area. Pain of ri [facility] ankle joint 8257333380 9609234 M25.571 Localized edema 73966500 4 R60.0 The patient was educated about the importance of exercise, diet and the need to protect their feet in order to prevent injury or ulceration . [id number] MAT REYNAGA DPM [facility] [address] [place] [address] 11/20/2023 11:07:05 11/20/2023 14:53:39 Sprain of right ankle 6901511828 6573286 S93.411D S93.421D The sprained area was evaluated and x-rays confirm no evidence of rupture/fr acture of the area. The patient was educated to stay off of the area, elevate, ice and keep an jefferson wrap around the area. Oral NSAIDs were discussed and recommende d. The area is to be iced and I have reviewed all offloading options. I have told the patient that is the area does not heal, I will order an MRI. I have also discussed physical therapy after the area improves to stabilize and strengthen the area.-cont inue aso brace until weaned out by physcial therapy Pain of ri [facility] ankle joint 3346264454 5662512 M25.571 Localized edema 30484298 4 R60.0 The patient was educated about the importance of exercise, diet and the need to protect their feet in order to prevent injury or ulceration . [id number] MAT REYNAGA DPM [facility] [address] [place] [address] 12/24/2023 09:45:20 12/30/2023 13:24:57 Sprain of right ankle 5686899590 2522270 S93.411D S93.421D The sprained area was evaluated and x-rays confirm no evidence of rupture/fr acture of the area. The patient was educated to stay off of the area, elevate, ice and keep an jefferson wrap around the area. Oral NSAIDs were discussed and recommende d. The area is to be iced and I have reviewed all offloading options. I have told the patient that is the area does not heal, I will order an MRI. I have also discussed physical therapy after the area improves to stabilize and strengthen the area.-cont inue aso brace until weaned out by physcial therapy Pain of ri ght ankle joint 9502380556 2478394 M25.571 will consider sinus tarsi injection at next appointmen t Localized edema 77720725 4 R60.0 The patient was educated about the importance of exercise, diet and the need to protect their feet in order to prevent injury or ulceration . Right foot neuritis 2924 412226 59056 G57.81 The area of neuritis was evaluated and the patient was educated regarding the typical causes of nerve irritation /inflammat ion. The area of pain was evaluated closely to identify the likely cause. The patient was educated regarding the possible biomechani kendall causes as well as shoe causes. The patient was given informatio n about the causes and treatments of neuritis. The patient was educated regarding the common use of injectable s to calm the area down and reduce inflammati on around the nerve. The patient was also given informatio n about Physical Therapy to help reduce scar tissue and adhesions around the nerve. [id number] RAVI BUENROSTRO [facility] [address] [place] [address] 01/28/2024 08:32:45 01/28/2024 10:00:32 Mass of left breast 2393387809 4903608 N63.20 lump in left breast palpated at 6 o'clockUS and diagnostic ordered diagnostic mamm 07/2023:1. No correlate for palpable abnormalit y on mammogram. Small conglomera tion ofcysts at the 6:00positi on, 2 cm from the nipple is seen. This could be an incidental finding.Co ntinued follow-upi s fredo d. Lack of definitive correlate should not delay biopsy or otherfurth er evaluation ifclinical ly indicated. Type 2 flaca betes mellitus 52872186 E11.9 A1C 6.0% (05/2023) 6.3% (01/2023) 6.2% (06/2022) 6.6% (10/2021) stop metformin and start ozempic. Patient denies fam hx of thyroid cancer, personal hx pancreatit is. Medication side effects were reviewed with patient and include TRISTAN, pancreatit is, nausea, vomiting, stomach upset. Patient was shown pen and was shown how to clean area, inject pen, and how often to administer . eye exam: 11/19/2023 at [facility] foot exam: normal 09/2024 ppsv23: 07/10/2022 Statin: advised re-startin g and benefits ACEi: Lisinopril 10mg Major depr essive disorder 871679201 F32.9 - advised counseling -Patient was educated on his prescribed medication s, rationale for medication s, dosing indication s, adverse reactions, black box warning, dosing indication s, SE (e.g., decreased libido, weight gain, gynecomast ia, and galactorrh ea) and the risks and benefits. -Call center with questions/ concerns. Go to ER or call 911 for crisis (e.g., suicidal behaviors, suicidal ideations, intent or plan emerge). Additional ly, patient has suicide hotline #[phone]. - f/u one month - call with questions Female str ess incontinence 75614786 N39.3 loss of control of urine with sneezing or coughing.- therapy [id number] MAT REYNAGA DPM [facility] [address] [address] 01/28/2024 11:33:05 01/29/2024 09:14:01 Sprain of right ankle 9131778414 7870714 S93.411D S93.421D The sprained area was evaluated and x-rays confirm no evidence of rupture/fr acture of the area. The patient was educated to stay off of the area, elevate, ice and keep an jefferson wrap around the area. Oral NSAIDs were discussed and recommende d. The area is to be iced and I have reviewed all offloading options. I have told the patient that is the area does not heal, I will order an MRI. I have also discussed physical therapy after the area improves to stabilize and strengthen the area.-cont inue aso brace until weaned out by physcial therapy Pain of ri t ankle joint 0507260207 9456981 M25.571 will consider sinus tarsi injection at next appointmen t Localized edema 33792765 4 R60.0 The patient was educated about the importance of exercise, diet and the need to protect their feet in order to prevent injury or ulceration . Right foot neuritis 2924 162771 77291 G57.81 The area of neuritis was evaluated and the patient was educated regarding the typical causes of nerve irritation /inflammat ion. The area of pain was evaluated closely to identify the likely cause. The patient was educated regarding the possible biomechani kendall causes as well as shoe causes. The patient was given informatio n about the causes and treatments of neuritis. The patient was educated regarding the common use of injectable s to calm the area down and reduce inflammati on around the nerve. The patient was also given informatio n about Physical Therapy to help reduce scar tissue and adhesions around the nerve. [id number] MAT REYNAGA DPM [facility] [address] [address] 03/03/2024 16:14:56 03/04/2024 15:08:41 Sprain of right ankle 2600553313 0018416 S93.411D The sprained area was evaluated and x-rays confirm no evidence of rupture/fr acture of the area. The patient was educated to stay off of the area, elevate, ice and keep an jefferson wrap around the area. Oral NSAIDs were discussed and recommende d. The area is to be iced and I have reviewed all offloading options. I have told the patient that is the area does not heal, I will order an MRI. I have also discussed physical therapy after the area improves to stabilize and strengthen the area.-cont inue aso brace until weaned out by physcial therapy by [facility] physical therapy=mn dial ankle pain has resolved Pain of ri ght ankle joint 6447433700 2715271 M25.571 will consider sinus tarsi injection at next appointmen t Localized edema 60424238 4 R60.0 The patient was educated about the importance of exercise, diet and the need to protect their feet in order to prevent injury or ulceration . Right foot neuritis 2924 696960 49601 G57.81 The area of neuritis was evaluated and the patient was educated regarding the typical causes of nerve irritation /inflammat ion. The area of pain was evaluated closely to identify the likely cause. The patient was educated regarding the possible biomechani kendall causes as well as shoe causes. The patient was given informatio n about the causes and treatments of neuritis. The patient was educated regarding the common use of injectable s to calm the area down and reduce inflammati on around the nerve. The patient was also given informatio n about Physical Therapy to help reduce scar tissue and adhesions around the nerve. [id number] RAVI BUENROSTRO [facility] [address] [place] [address] 03/03/2024 09:42:49 03/03/2024 10:09:30 Major depressive disorder 735246005 F32.9 PHQ 10. INCREASE dose today. close monitoring and increased dose. advised ER if SI w/ plan or worsening SI thoughts. She feels safe going home.- advised counseling -Patient was educated on his prescribed medication s, rationale for medication s, dosing indication s, adverse reactions, black box warning, dosing indication s, SE (e.g., decreased libido, weight gain, gynecomast ia, and galactorrh ea) and the risks and benefits.- Call center with questions/ concerns. Go to ER or call 911 for crisis (e.g., suicidal behaviors, suicidal ideations, intent or plan emerge). Additional ly, patient has suicide hotline #.- f/u one month- call with questions [phone] MAT REYNAGA DPM [facility] [address] [place] [address] 04/14/2024 16:02:03 04/14/2024 16:42:03 Sprain of right ankle 1364466368 2723875 S93.411D The sprained area was evaluated and x-rays confirm no evidence of rupture/fr acture of the area. The patient was educated to stay off of the area, elevate, ice and keep an jefferson wrap around the area. Oral NSAIDs were discussed and recommende d. The area is to be iced and I have reviewed all offloading options. I have told the patient that is the area does not heal, I will order an MRI. I have also discussed physical therapy after the area improves to stabilize and strengthen the area.-cont inue aso brace until weaned out by physcial therapy by [facility] physical therapy= dial ankle pain has resolved Pain of ri t ankle joint 9737085150 0072466 M25.571 will consider sinus tarsi injection at next appointmen t Localized edema 16149752 4 R60.0 The patient was educated about the importance of exercise, diet and the need to protect their feet in order to prevent injury or ulceration . Right foot neuritis 2924 875691 68209 G57.81 The area of neuritis was evaluated and the patient was educated regarding the typical causes of nerve irritation /inflammat ion. The area of pain was evaluated closely to identify the likely cause. The patient was educated regarding the possible biomechani kendall causes as well as shoe causes. The patient was given informatio n about the causes and treatments of neuritis. The patient was educated regarding the common use of injectable s to calm the area down and reduce inflammati on around the nerve. The patient was also given informatio n about Physical Therapy to help reduce scar tissue and adhesions around the nerve. Sinus tars i syndrome of right ankle 0359683423 5384124 M25.222 [id number] MAT REYNAGA DPM [facility] [address] [place] [address] 05/05/2024 15:49:50 05/06/2024 09:24:45 Sprain of right ankle 3027280186 0389906 S93.411D The sprained area was evaluated and x-rays confirm no evidence of rupture/fr acture of the area. The patient was educated to stay off of the area, elevate, ice and keep an jefferson wrap around the area. Oral NSAIDs were discussed and recommende d. The area is to be iced and I have reviewed all offloading options. I have told the patient that is the area does not heal, I will order an MRI. I have also discussed physical therapy after the area improves to stabilize and strengthen the area.-cont inue aso brace until weaned out by physcial therapy by [facility] physical therapy=me dial ankle pain has resolved Pain of ri ght ankle joint 8456042481 6174512 M25.571 will consider sinus tarsi injection at next appointmen t Localized edema 25625981 4 R60.0 The patient was educated about the importance of exercise, diet and the need to protect their feet in order to prevent injury or ulceration . Right foot neuritis 2924 753350 57018 G57.81 The area of neuritis was evaluated and the patient was educated regarding the typical causes of nerve irritation /inflammat ion. The area of pain was evaluated closely to identify the likely cause. The patient was educated regarding the possible biomechani kendall causes as well as shoe causes. The patient was given informatio n about the causes and treatments of neuritis. The patient was educated regarding the common use of injectable s to calm the area down and reduce inflammati on around the nerve. The patient was also given informatio n about Physical Therapy to help reduce scar tissue and adhesions around the nerve. Sinus tars i syndrome of right ankle 1540610716 7566484 M25.086 [id number] MAT REYNAGA DPM [facility] [address] [address] 05/19/2024 14:56:07 05/20/2024 07:56:46 Sprain of right ankle 5690160730 9979488 S93.411D The sprained area was evaluated and x-rays confirm no evidence of rupture/fr acture of the area. The patient was educated to stay off of the area, elevate, ice and keep an jefferson wrap around the area. Oral NSAIDs were discussed and recommende d. The area is to be iced and I have reviewed all offloading options. I have told the patient that is the area does not heal, I will order an MRI. I have also discussed physical therapy after the area improves to stabilize and strengthen the area.-cont inue aso brace until weaned out by physcial therapy by [facility] physical therapy=me dial ankle pain has resolved Pain of ri ght ankle joint 5144465433 3923208 M25.571 will consider sinus tarsi injection at next appointmen t Localized edema 22086383 4 R60.0 The patient was educated about the importance of exercise, diet and the need to protect their feet in order to prevent injury or ulceration . Right foot neuritis 2924 754589 16600 G57.81 The area of neuritis was evaluated and the patient was educated regarding the typical causes of nerve irritation /inflammat ion. The area of pain was evaluated closely to identify the likely cause. The patient was educated regarding the possible biomechani kendall causes as well as shoe causes. The patient was given informatio n about the causes and treatments of neuritis. The patient was educated regarding the common use of injectable s to calm the area down and reduce inflammati on around the nerve. The patient was also given informatio n about Physical Therapy to help reduce scar tissue and adhesions around the nerve. Sinus tars i syndrome of right ankle 8887222526 8118071 M25.820 [id number] [facility] [address] [place] [address] 06/30/2024 15:19:50 07/01/2024 08:37:26 Sprain of right ankle 5519007138 7642559 S93.411D The sprained area was evaluated and x-rays confirm no evidence of rupture/fr acture of the area. The patient was educated to stay off of the area, elevate, ice and keep an jefferson wrap around the area. Oral NSAIDs were discussed and recommende d. The area is to be iced and I have reviewed all offloading options. I have told the patient that is the area does not heal, I will order an MRI. I have also discussed physical therapy after the area improves to stabilize and strengthen the area.-cont inue aso brace until weaned out by physcial therapy by [facility] physical therapy=me dial ankle pain has resolved Pain of ri ght ankle joint 3275642120 8619775 M25.571 will consider sinus tarsi injection at next appointmen t Localized edema 96775825 4 R60.0 The patient was educated about the importance of exercise, diet and the need to protect their feet in order to prevent injury or ulceration . Right foot neuritis 2924 629945 95633 G57.81 The area of neuritis was evaluated and the patient was educated regarding the typical causes of nerve irritation /inflammat ion. The area of pain was evaluated closely to identify the likely cause. The patient was educated regarding the possible biomechani kendall causes as well as shoe causes. The patient was given informatio n about the causes and treatments of neuritis. The patient was educated regarding the common use of injectable s to calm the area down and reduce inflammati on around the nerve. The patient was also given informatio n about Physical Therapy to help reduce scar tissue and adhesions around the nerve. Sinus tars i syndrome of right ankle [id number] M25.117 [id number] RAVI BUENROSTRO [facility] [address] [place] [address] 07/16/2024 12:19:04 07/16/2024 13:04:54 Gastroesophageal reflux disease [id number] K21.9 refill Pain in pelvis [id number] R10.2 patient with recurrent pain in RLQ pain. Last episode of similar pain she needed to get her appendix out. no red flad sx. will send to have US and will f/u with her GI.She understand s to go to ER with worsening abdominal pain, fever, chills, cp, sob Health Concerns Section Related Observation LastModified by Organization Detai ls LastModified Time None Recorded Concern Status LastModified by Organization Details LastModified Time None Recorded Advance Directives Directive N: Payers Encounter Date Sequence Insurance Name Policy Number Policy [place] Covered Member ID Vallejo Member ID Guarantor Name 04/14/2024 1 [facility] ON OR AFTER 04/20/21 (MEDICAID REPLACEMENT - HMO) Arti Yvonne [id number] Arti Yvonne 05/05/2024 1 [facility] ON OR AFTER 04/20/21 (MEDICAID REPLACEMENT - HMO) Arti Yvonne [id number] Arti Yvonne 05/19/2024 1 [facility] ON OR AFTER 04/20/21 (MEDICAID REPLACEMENT - HMO) Arti Yvonne [id number] Arti Yvonne 06/30/2024 1 [facility] ON OR AFTER 04/20/21 (MEDICAID REPLACEMENT - HMO) Arti Yvonne [id number] Arti Yvonne 07/16/2024 1 [facility] - DOS ON OR AFTER 21 (MEDICAID REPLACEMENT - HMO) Arti Russell [id number] Arti Russell Notes Date Note Type Note Provider Name and Address Organization Details Recorded Time 04/14/2024 text/html Patient presents for f/u sharp pain in her right inner and outer ankle initially graded 8/10 beginning September 13 2023 after walking barefoot and slipping in her house that is today graded 6-9/10. Patient relates pain greatest with walking and pain is relieved by restDenies nausea, vomiting, fever, chills, shortness of breath, chest pain, difficulty breathing, calf pain. Patient denies thickened toenails, toe nail changes, skin changes on lower legs, tingling and numbness in toes and feet and reports ankle joint pain and sharp pain when walking MAT REYNAGA DPM [address] [place], [address], [facility] 04/14/2024 16:44:44 05/05/2024 text/html Patient presents for f/u sharp pain in her right inner and outer ankle initially graded 8/10 beginning September 13 2023 after walking barefoot and slipping in her house that is today graded 5/10. Patient relates pain greatest with walking and pain is relieved by restDenies nausea, vomiting, fever, chills, shortness of breath, chest pain, difficulty breathing, calf pain. Patient denies thickened toenails, toe nail changes, skin changes on lower legs, tingling and numbness in toes and feet and reports ankle joint pain and sharp pain when walking MAT REYNAGA DPM [address] [place], [address], [facility] 05/05/2024 16:19:23 05/19/2024 text/html Patient presents for f/u sharp pain in her right inner and outer ankle initially graded 8/10 beginning September 13 2023 after walking barefoot and slipping in her house that is today graded 4/10. Patient relates pain greatest with walking and pain is relieved by restDenies nausea, vomiting, fever, chills, shortness of breath, chest pain, difficulty breathing, calf pain. Patient denies thickened toenails, toe nail changes, skin changes on lower legs, tingling and numbness in toes and feet and reports ankle joint pain and sharp pain when walking MAT REYNAGA, DPM [address] [place], [address], [facility] 05/19/2024 15:56:29 06/30/2024 text/html Patient presents for f/u sharp pain in her right inner and outer ankle initially graded 8/10 beginning September 13 2023 after walking barefoot and slipping in her house that is today graded 2/10. Patient relates pain greatest with walking and pain is relieved by restDenies nausea, vomiting, fever, chills, shortness of breath, chest pain, difficulty breathing, calf pain. Patient denies thickened toenails, toe nail changes, skin changes on lower legs, tingling and numbness in toes and feet and reports ankle joint pain and sharp pain when walking MAT REYNAGA, DPWolfgang [address], [place], [address], [facility] 06/30/2024 16:03:32 07/16/2024 text/html Arti presents for abdominal pain she states she has had continues abdominal pain. She will reach out to her GI and f/u. denies nasuea, vomiting, fever, yellowing of skin or eyes. RAVI BUENROSTRO Attn: Accounting,[address] [place], [address], [facility] 07/22/2024 13:30:37 OBGyn Episode No OBEpisode recorded.
[2025-01-21 13:29] VITALS: BP 176/87; PULSE 75; RESP 11; O2SAT 100
--- NOTE | 2025-01-21 13:37 | ECG_ITS ---
Test Date: 2025-01-21 14:19:54 Measurements Intervals [place] Rate: 76 P: 52 ND: 156 QRS: 19 QRSD: 82 T: 19 QT: 385 QTc: 435 Interpretive Statements SINUS RHYTHM BASELINE ARTIFACT- I, III, AVR, AVL NORMAL ECG No previous ECG available for comparison Electronically Signed On 01-21-2025 16:00:15 CDT by Haider Radford D.O.
--- OUTSIDE RECORDS SUMMARY | 2025-01-21 13:53 | XMS_ITS | Clinical Summary ---
Author Organization [facility] Address [address] [place] [id number] Care Team Providers Care Development Planner Name Role Phone None, Provider MD Primary [...] age to complete this topic Care Teams Development Planner Relationship Specialty Start Date End Date None, Provider, PCP - General 02/23/21
--- NOTE | 2025-01-21 13:59 | ED.GENADULT ---
HPI - General Adult General Chief complaint: Unspecified Stated complaint: High BP-168/100 headache Time Seen by Provider: 01/21/25 13:21 History of Present Illness HPI narrative: 49-year-old female history of hypertension presented to the emergency department for evaluation for elevated blood pressure. Patient states her blood pressure typically runs in the 130 range systolic when she is taking her medications. Patient reports she has been taking her medications and has had no medication changes. Patient denies any dietary or lifestyle changes. Patient does have a headache and has had some intermittent dizziness. Patient denies any associated chest pain. Related Data Home Medications ?Medication ?Instructions ?Recorded ?Confirmed ?Last Taken ?Type lisinopril 10 1 tablet PO DAILY 12/18/22 07/23/23 01/24/23 History mg-hydrochlorothiazide 12.5 mg tablet metformin 500 mg tablet,extended 500 mg PO DAILY 12/18/22 07/23/23 01/24/23 History release 24 hr magnesium 250 mg tablet 250 mg PO DAILY 07/22/23 07/23/23 Unknown History Allergies Allergy/AdvReac Type Severity Reaction Status Date / Time latex Allergy Intermediate Rash Verified 01/21/25 13:17 Review of Systems Review of Systems: All systems reviewed & are unremarkable except as noted in HPI and below PMFSH Past Medical History Medical History Diabetes HTN (hypertension) Hyperlipidemia Surgical History Surgical History History of laparoscopic appendectomy 01/25/23 Social History Social History Smoking status: Never smoker Substance use: never Substance use type: does not use Living arrangements: with family Spiritual care concerns: No Exam Narrative: APPEARANCE: Well appearing, no pain, no distress, well-nourished. HEAD: normocephalic, atraumatic. EYES: PERRLA/EOMI, conjunctivae clear. NOSE: Normal no drainage EARS:TMS clear with good light reflex. THROAT: Pharynx clear, no exudate. NECK: Supple. No adenopathy, no masses. RESPIRATORY: Airway patent, respirations nonlabored. Clear to auscultation bilaterally, no rales, rhonchi, wheezing. CARDIOVASCULAR: Regular rate and rhythm without murmurs rubs or gallops. ABDOMINAL: Soft, nontender, nondistended, normal bowel sounds MUSCULOSKELETAL: Moves all extremities. Strength/ROM intact, No edema, No calf tenderness. NEURO: Alert. Cranial nerves II through XII intact. Good gait. Good coordination SKIN: Warm, dry. Normal Color Course Vital Signs Vital signs: Vital Signs Temperature 97.8 F 01/21/25 13:12 Pulse Rate 88 01/21/25 13:12 Respiratory Rate 18 01/21/25 13:12 Blood Pressure 181/84 H 01/21/25 13:12 Pulse Oximetry 100 01/21/25 13:12 Oxygen Delivery Room Air 01/21/25 13:12 Temperature 97.8 F 01/21/25 13:12 Pulse Rate 74 01/21/25 15:54 Respiratory Rate 18 01/21/25 15:54 Blood Pressure 129/80 01/21/25 15:54 Pulse Oximetry 99 01/21/25 15:54 Oxygen Delivery Room Air 01/21/25 13:12 Medical Decision Making MDM Narrative Medical decision making narrative: 49-year-old female presents emergency department for evaluation for elevated blood pressure. Patient is neurologically intact. Patient's head CT was negative. Patient's blood pressure did improve with treatment. Patient will have follow-up with her primary care physician to have her blood pressure medications adjusted. Differential Diagnosis Differential Diagnosis: Intracranial abnormality, subdural trauma, subarachnoid hemorrhage, hypertension Vital Signs Vital Signs: Vital Signs Temperature 97.8 F 01/21/25 13:12 Pulse Rate 88 01/21/25 13:12 Respiratory Rate 18 01/21/25 13:12 Blood Pressure 181/84 H 01/21/25 13:12 Pulse Oximetry 100 01/21/25 13:12 Oxygen Delivery Room Air 01/21/25 13:12 Temperature 97.8 F 01/21/25 13:12 Pulse Rate 74 01/21/25 15:54 Respiratory Rate 18 01/21/25 15:54 Blood Pressure 129/80 01/21/25 15:54 Pulse Oximetry 99 01/21/25 15:54 Oxygen Delivery Room Air 01/21/25 13:12 Lab Data Lab results reviewed: Yes I reviewed the patient's lab results. 01/21/25 14:02 01/21/25 14:02 Labs: Lab Results 01/21/25 01/21/25 Range/Units 14:02 14:47 WBC 9.3 (4.5-10.0) K/mm3 RBC 4.85 (4.2-5.4) M/mm3 Hgb 13.7 (12.0-15.0) g/dL Hct 41.2 (37.0-47.0) % MCV 84.9 (80-100) fl MCH 28.2 (26-34) pg MCHC 33.3 (32-36) g/dl RDW 12.6 (11.5-14.5) % Plt Count 265 (150-375) k/mm3 MPV 11.5 H (7.4-10.4) fl Immature Gran % (Auto) 0.3 (0-0.5) % Neut % (Auto) 66.5 (45.5-73.1) % Lymph % (Auto) 25.1 (18.3-44.2) % [place] % (Auto) 6.2 (2.6-8.5) % Eos % (Auto) 1.6 (0-4.4) % Baso % (Auto) 0.3 (0.2-1.2) % Lymph # (Auto) 2.34 (0.9-3.2) K/mm3 [place] # (Auto) 0.6 (0.1-0.6) K/mm3 Eos # (Auto) 0.2 (0-0.3) K/mm3 Baso # (Auto) 0.0 (0.0-0.1) K/mm3 Abs Immat Gran (auto) 0.03 (0.00-0.031) K/mm3 Absolute Neuts (auto) 6.2 (1.3-6.7) K/mm3 Absolute Nucleated RBC 0.000 (0.0-0.012) K/mm3 Nucleated RBC % 0.0 (0.0-0.2) % PT 12.8 (11.1-14.7) Seconds INR 0.9 APTT 24.9 (22.3-36.8) Seconds Sodium 135 L (137-145) mmol/L Potassium 3.9 (3.4-5.0) mmol/L Chloride 100 (98-107) mmol/L Carbon Dioxide 26 (22-30) mmol/L Anion Gap 9 (4-12) mmol/L BUN 14 D (7-17) mg/dL Creatinine 0.60 L (0.7-1.0) mg/dL Estim Creat Clear Calc 91 ml/min Estimated GFR > 60 (59 - ) Glucose 249 H (65-110) mg/dL Calcium 8.8 (8.4-10.2) mg/dL Total Bilirubin 0.3 (0.2-1.3) mg/dL AST 51 H (14-36) U/L ALT 67 H (6-35) U/L Alkaline Phosphatase 155 H (38-126) U/L Total Protein 8.0 (6.3-8.2) g/dL Albumin 4.2 (3.5-5.1) g/dL Urine Color Yellow (Yellow) Urine Appearance Clear (Clear) Urine pH 6.0 (5.0-9.0) Ur Specific [place] 1.010 (1.001-1.035) Urine Protein Negative (Negative) mg/dL Urine Glucose (UA) 1+ H (Negative) mg/dL Urine Ketones Negative (Negative) mg/dL Ur Blood (Man) Negative (Negative) Urine Nitrate Negative (Negative) Urine Bilirubin Negative (Negative) Urine Urobilinogen 0.2 (<2.0) mg/dL Leukocyte Esterase Rfl Negative (Negative) BLAS/UL Discharge Plan Discharge Clinical Impression: HTN (hypertension) Patient Disposition: Home, Self-Care Condition: Stable Instructions: Antibiotic Form, Hypertension (ED) Additional Instructions: Have close follow-up with your primary care physician to determine if they want to increase your blood pressure medications. Take your blood pressure medications as directed. Patient Language: Ug[place] Prescriptions: No Action magnesium 250 mg tablet 250 mg PO DAILY lisinopril-hydrochlorothiazide 10-12.5 mg Tablet 1 tablet PO DAILY metformin 500 mg Tablet Extended Release 24 Hr 500 mg PO DAILY Follow-up/Referrals: Peewee,RAVI Bean [Primary Care Provider] -
[2025-01-21] MEDS: hydrALAZINE HCL 20 MG/ML VIAL 10 MG IV PUSH (14:07)
[2025-01-21 14:10] LABS: Basophils Percent Auto 0.3 % (0.2-1.2); Eosinophils Absolute Auto 0.2 K/mm3 (0-0.3); Eosinophils Percent Auto 1.6 % (0-4.4); Hematocrit 41.2 % (37.0-47.0); Hemoglobin 13.7 g/dL (12.0-15.0); Immature Granulocyte Absolute 0.03 K/mm3 (0.00-0.031); Immature Granulocyte Percent A 0.3 % (0-0.5); Lymphocytes Absolute Auto 2.34 K/mm3 (0.9-3.2); Lymphocytes Percent Auto 25.1 % (18.3-44.2); Mean Corpuscular HGB Conc 33.3 g/dl (32-36); Mean Corpuscular Hemoglobin 28.2 pg (26-34); Mean Corpuscular Volume 84.9 fl (80-100); Mean Platelet Volume 11.5 fl (7.4-10.4); Monocytes Absolute Auto 0.6 K/mm3 (0.1-0.6); Monocytes Percent Auto 6.2 % (2.6-8.5); Neutrophils Absolute Auto 6.2 K/mm3 (1.3-6.7); Neutrophils Percent Auto 66.5 % (45.5-73.1); Platelet Count Result 265 k/mm3 (150-375); Red Blood Count 4.85 M/mm3 (4.2-5.4); Red Cell Distribution Width 12.6 % (11.5-14.5); White Blood Count 9.3 K/mm3 (4.5-10.0)
[2025-01-21 14:21] LABS: Alanine Aminotransferase 67 U/L (6-35); Albumin Level 4.2 g/dL (3.5-5.1); Alkaline Phosphatase 155 U/L (38-126); Anion Gap 9 mmol/L (4-12); Aspartate Amino Transferase 51 U/L (14-36); Bilirubin,Total 0.3 mg/dL (0.2-1.3); Blood Urea Nitrogen 14 mg/dL (7-17); Calcium 8.8 mg/dL (8.4-10.2); Carbon Dioxide 26 mmol/L (22-30); Chloride 100 mmol/L (98-107); Estimated CRCL calculation 91 ml/min; Estimated Glomerular Filt Rate > 60; Glucose 249 mg/dL (65-110); INR 0.9; Potassium 3.9 mmol/L (3.4-5.0); Prothrombin Time 12.8 Seconds (11.1-14.7); Sodium 135 mmol/L (137-145)
[2025-01-21 14:22] LABS: Partial Thromboplastin Time 24.9 Seconds (22.3-36.8)
[2025-01-21] MEDS: KETOROLAC 30 MG/ML VIAL (*BKC) IV PUSH (14:50)
[2025-01-21 14:52] VITALS: BP 139/78; PULSE 76; RESP 15; O2SAT 99
[2025-01-21 14:54] LABS: Add Urine Microscopic? NO; Appearance Urine Clear (Clear); Bilirubin Urine Negative (Negative); Blood Urine Negative (Negative); Color Urine Yellow (Yellow); Glucose Urine UA 1+ mg/dL (Negative); Ketones Urine Negative (Negative); Leukocyte Esterase Ur Negative LEU/UL (Negative); Nitrate Urine Negative (Negative); Protein Urine Negative (Negative); Urobilinogen Urine 0.2 mg/dL (<2.0)
[2025-01-21 15:54] VITALS: BP 129/80; PULSE 74; RESP 18; O2SAT 99
== END 2025-01-21 15:52 | disposition home or self-care (01) ==
PROVIDERS: Emergency Provider Emergency Medicine; PCP Physician Assistant
DX: I10 Essential (primary) hypertension (principal); E11.9 Type 2 diabetes mellitus without complications; E78.5 Hyperlipidemia, unspecified
CPT/HCPCS: 36415; 70450; 80053; 81003; 85025; 85610; 85730; 93005; 96374; 96375; 99284; J0360; J1885

== ENCOUNTER 2025-04-02 00:52 | Day surgery (SDC) | payer OTHER, SELFPAY ==
[2025-03-24 12:59] VITALS: BMI 34.3
--- OUTSIDE RECORDS SUMMARY | 2025-04-02 00:54 | XMS_ITS | Data Portability ---
Author Organization ROSALES AJAYAurora Diaz Address [address] [facility] [place] [address] Care Team Providers Care Family Dentist Name Role Phone MAXIMINO MYERS Instrumentation Manager SAROJ JACKSON Primary Care Provider [phone] Assessment Encounter Date Assessment Date Assessment LastModified by Organization Details LastModified Time 02/02/2025 02/02/2025 given glucose sheet to record BG and bring to next visit advised calling if BG >200 Not available 02/02/2025 11:35:43 Plan of Treatment Reminders Order Date Submit Date Provider Last Modified By Organization Details Last Modified Time Details Appointments ANY 15 2024 11:45A M RAVI BUENROSTRO Not available Not available Not available Lab pap, IG + reflex HPV 2024 025 [facility], [address] [facility], [address], [place], [address], 02/18/2025 11:33:17 TSH + free T4, serum 2024 025 [facility], [address] [facility], [address], [place], [address], 02/03/2025 12:26:39 CMP, serum or plasma 2024 025 [facility], [address] [facility], [address], [place], [address], 02/03/2025 00:11:44 lipid panel, serum 2024 [facility], [address] [facility], [address], [place], [address], 02/03/2025 00:11:43 HbA1c (hemoglob in A1c), blood 2024 025 [facility], [address] [facility], [address], [place], [address], 02/03/2025 12:26:40 albumin/c reatinine , mass ratio, urine 2024 [facility], [address] [facility], [address], [place], [address], 02/03/2025 12:26:38 Referral None recorded. Procedures None recorded. Surgeries None recorded. Imaging MAMMO, diagnosti c, bilateral [address] (Rad), [address] [place], [address], 03/16/2025 08:55:43 US, breast, unilatera l [address] (Rad), [address], [place], [address], 03/16/2025 08:55:43 unlisted imaging order [address] (Imaging), [address] [facility] [address], [place], [address], 12/30/2024 08:22:12 Medication Orders lisinopri l 20 mg-hydroc hlorothia zide 12.5 mg tablet 2024 025 [facility], [address] [place], [place], [id number], 02/02/2025 16:34:24 metformin 1,000 mg tablet 2024 025 [facility], [address] [place] [address], [id number], 02/02/2025 16:34:25 simvastat in 20 mg tablet 2024 025 [facility], [address] [place] [address], [id number], 02/02/2025 16:34:24 omeprazol e 20 mg capsule,d elayed release 2023 025 [facility], [address] [place] [address], [id number], 02/02/2025 11:08:06 naproxen 500 mg tablet [address] [facility], [address] [place] [address], [id number], 02/02/2025 11:00:54 Medrol (Jayme) 4 mg tablets in a dose pack [address] [facility], [address] [place] [address], [id number], 02/02/2025 10:50:38 triamcino lone acetonide 0.1 % topical cream [address] [facility], [address] [place] [address], [id number], 02/16/2025 12:01:50 duloxetin e 30 mg capsule,d elayed release [address], [address] [place] [address], [id number], 02/02/2025 10:55:03 naproxen 500 mg tablet [address], [address] [place] [address], [id number], 02/02/2025 10:55:10 Medrol (Jayme) 4 mg tablets in a dose pack [address] [facility], [address] [place] [address], [id number], 02/02/2025 10:41:42 triamcino lone acetonide 0.1 % topical cream [address] [facility], [address] [place] [address], [id number], 02/16/2025 12:00:00 duloxetin e 60 mg capsule,d elayed release 2023 025 [facility], [address] [place] [address], [id number], 02/02/2025 10:50:39 Kenalog 40 mg/mL suspensio n for injection 2023 024 Not available 02/16/2025 12:00:02 Patient TargetsNo targets recorded. Patient Instructions Encounter Date Encounter Id Patient Instructions Last Modified By Organization Details Last Modified Time 02/02/2025 [id number] A healthy lifestyle: care instructions Not available 02/02/2025 10:44:04 Reason for Referral None Reported. Results Created Date Observation Date Name Description Value Unit Range Abnormal Flag Note LastModifiedBy Organization Detail LastModifiedTime 02/03/2002/03/2025 LIPID PANEL cholesterol, total 179 mg/dL 100-19 9 Not Available [facility] Department [address] [place], [address], 02/03/2025 00:11:43 02/03/2002/03/2025 LIPID PANEL triglyceride s 147 mg/dL 0-149 Not Available [facility] Department [address] [place], [address], 02/03/2025 00:11:43 02/03/20 25 02/03/2025 LIPID PANEL HDL cholesterol 49 mg/dL 40-999 Not Available [facility] Department [address] [place] [address], [id number], 02/03/2025 00:11:43 02/03/20 25 02/03/2025 LIPID PANEL VLDL cholesterol kendall 29 mg/dL 5-40 Not Available [facility] Department [address] [place] [address], [id number], 02/03/2025 00:11:43 02/03/20 25 02/03/2025 LIPID PANEL LDL chol calc (nih) 122 mg/dL 0-99 above high normal Not Available [facility] Department [address] [place] [address], [address], 02/03/2025 00:11:43 02/03/2002/03/2025 COMP. METAB OLIC PANEL (14) glucose 227 mg/dL 70-99 above high normal Not Available [facility] Department [address] [place] [address], [address], 02/03/2025 00:11:44 02/03/20 25 02/03/2025 COMP. METAB OLIC PANEL (14) BUN 8 mg/dL 6-24 Not Available [facility] Department [address] [place] [address], [id number], 02/03/2025 00:11:44 02/03/20 25 02/03/2025 COMP. METAB OLIC PANEL (14) creatinine <=0.46 mg/dL 0.76-1 .27 below low normal Not Available [facility] Department [address] [place] [address], [id number], 02/03/2025 00:11:44 02/03/20 25 02/03/2025 COMP. METAB OLIC PANEL (14) eGFR 117 >=60 Units for eGFR value s are mL/mi n/1.7 3 The eGFR Calcu latio n has not been valid ated for patie nts under the age of 18. If test resul ts are displ ayed for a patie nt under the age of 18, disre eula that value . Not Available [facility] Department [address] [place] [address], [address], 02/03/2025 00:11:44 02/03/20 25 02/03/2025 COMP. METAB OLIC PANEL (14) BUN/creatini ne ratio 18 9-23 Not Available [facility] Department [address] [place] [address], [id number], 02/03/2025 00:11:44 02/03/20 25 02/03/2025 COMP. METAB OLIC PANEL (14) sodium 137 mmol/ L 134-14 4 Not Available [facility] Department [address] [place] [address], [id number], 02/03/2025 00:11:44 02/03/20 25 02/03/2025 COMP. METAB OLIC PANEL (14) potassium 4.2 mmol/ L 3.5-5. 2 Not Available [facility] Department [address] [place] [address], [address], 02/03/2025 00:11:44 02/03/20 25 02/03/2025 COMP. METAB OLIC PANEL (14) chloride 101 mmol/ L 96-106 Not Available [facility] Department [address] [place] [address], [address], 02/03/2025 00:11:44 02/03/20 25 02/03/2025 COMP. METAB OLIC PANEL (14) carbon dioxide, total 25 mmol/ L 20-29 Not Available [facility] Department [address] [place] [address], [address], 02/03/2025 00:11:44 02/03/20 25 02/03/2025 COMP. METAB OLIC PANEL (14) calcium 9.6 mg/dL 8.7-10 .2 Not Available [facility] Department [address] [place] [address], [address], 02/03/2025 00:11:44 02/03/20 25 02/03/2025 COMP. METAB OLIC PANEL (14) protein, total 7.5 g/dL 6.0-8. 5 Not Available [facility] Department [address] [place], [address], 02/03/2025 00:11:44 02/03/20 25 02/03/2025 COMP. METAB OLIC PANEL (14) albumin 4.2 g/dL 3.9-4. 9 Not Available [facility] Department [address] [place], [address], 02/03/2025 00:11:44 02/03/20 25 02/03/2025 COMP. METAB OLIC PANEL (14) globulin, total 3.3 g/dL 1.5-4. 5 Not Available [facility] Department [address] [place], [address], 02/03/2025 00:11:44 02/03/20 25 02/03/2025 COMP. METAB OLIC PANEL (14) A/G ratio 1.3 1.2-2. 2 Not Available [facility] Department [address] [place], [address], 02/03/2025 00:11:44 02/03/20 25 02/03/2025 COMP. METAB OLIC PANEL (14) bilirubin, total 0.4 mg/dL 0.0-1. 2 Not Available [facility] Department [address] [place], [address], 02/03/2025 00:11:44 02/03/2002/03/2025 COMP. METAB OLIC PANEL (14) alkaline phosphatase 146 IU/L 44-121 above high normal Not Available [facility] Department [address] [place], [address], 02/03/2025 00:11:44 02/03/20 25 02/03/2025 COMP. METAB OLIC PANEL (14) AST (SGOT) 32 U/L 0-40 Not Available [facility] Department [address] [place], [address], 02/03/2025 00:11:44 02/03/20 25 02/03/2025 COMP. METAB OLIC PANEL (14) ALT (SGPT) 43 IU/L 0-32 above high normal Not Available [facility] Department [address] [place], [address], 02/03/2025 00:11:44 02/03/20 25 02/03/2025 ALBUM IN/CR EATIN INE RATIO ,URIN E creatinine, urine 15.6 mg/dL notest ab. Not Available [facility] ([facility]) [address] [place], [address], 02/03/2025 12:26:38 02/03/20 25 02/03/2025 ALBUM IN/CR EATIN INE RATIO ,URIN E albumin, urine 32.4 ug/mL notest ab. Not Available [facility] ([facility]) [address] [place], [address], 02/03/2025 12:26:38 02/03/20 25 02/03/2025 ALBUM IN/CR EATIN INE RATIO ,URIN E alb/creat ratio 208 mg/g_ creat 0-29 above high normal Tona l: 0 - 29 Moder ately incre ased: 30 - 300 Sever babs incre ased: >300 Not Available [facility] ([facility]) [address] [place], [address], 02/03/2025 12:26:38 02/03/2002/03/2025 TSH+F REE T4 TSH 0.779 uIU/m L 0.450- 4.500 Not Available [facility] ([facility]) [address] [place], [address], 02/03/2025 12:26:39 02/03/20 25 02/03/2025 TSH+F REE T4 T4,free(dire ct) 1.10 NG/dL 0.82-1 .77 Not Available [facility] ([facility]) [address] [facility], [place], [address], 02/03/2025 12:26:39 02/03/20 25 02/03/2025 HEMOG LOBIN A1C hemoglobin A1C 11.9 % 4.8-5. 6 above high normal Predi abete s: 5.7 - 6.4 Diabe edgardo: >6.4 Glyce justin contr ol for adult s with diabe edgardo: <7.0 Not Available [facility] ([facility]) [address] [facility], [place], [address], 02/03/2025 12:26:40 02/17/20 25 02/16/2025 IGP,A PTIMA HPV,A GE GDLN age gdln acog testing 30-65 Not Available [facility] ([facility]) [address] [place], [address], 02/18/2025 11:33:17 02/17/20 25 02/18/2025 IGP, APTIM A HPV, RFX 16/18 ,45 diagnosis: Commen t NEGAT JADEN FOR INTRA EPITH ELIAL LESIO N OR NESTOR MILLER . Not Available [facility] ([facility]) [address] [facility], [place], [address], 02/18/2025 11:33:18 02/17/20 25 02/18/2025 IGP, APTIM A HPV, RFX 16/18 ,45 specimen adequacy: Commen t Satis facto ry for evalu ation . Endoc ervic al and/o r squam ous metap lasti c cells (endo cervi kendall compo nent) are prese nt. Not Available [facility] ([facility]) [address] [facility], [place], [address], 02/18/2025 11:33:18 02/17/20 25 02/18/2025 IGP, APTIM A HPV, RFX 16/18 ,45 clinician provided ICD10: Raoul aguirre Z12.4 Not Available [facility] ([facility]) [address] [place], [address], 02/18/2025 11:33:18 02/17/20 25 02/18/2025 IGP, APTIM A HPV, RFX 16/18 ,45 performed by: Raoul Abebe , Cytol ogist (ASCP ) Not Available [facility] ([facility]) [address] [place], [address], 02/18/2025 11:33:18 02/17/20 25 02/18/2025 IGP, APTIM A HPV, RFX 16/18 ,45 . . Not Available [facility] ([facility]) [address] [place], [address], 02/18/2025 11:33:18 02/17/20 25 02/18/2025 IGP, APTIM A HPV, RFX 16/18 ,45 note: Raoul aguirre The Pap smear is a scree sivakumar test deslaura durbin to aid in the detec tion of loreto ligna nt and malig nant condi tions of the uteri ne cervi x. It is not a diagn ostic proce dure and shoul d not be used as the sole means of detec ting cervi kendall cance r. Both false -posi tive and false -nega tive repor ts do occur . Not Available [facility] ([facility]) [address] [facility], [place], [address], 02/18/2025 11:33:18 02/17/20 25 02/18/2025 IGP, APTIM A HPV, RFX 16/18 ,45 test methodology: Raoul aguirre This liqui d based ThinP rep(R ) pap test was scree gifty with the use of an image guide rom systmarcos ascencio. Not Available [facility] ([facility]) [address] [facility], [place], [address], 02/18/2025 11:33:18 02/17/20 25 02/18/2025 IGP, APTIM A HPV, RFX 16/18 ,45 HPV aptima Negati ve negati ve This nucle ic acid ampli ficat ion test detec ts fourt een high- risk HPV types (16,1 8,31, 33,35 ,39,4 5,51, 52,56 ,58,5 9,66, 68) witho ut diffe renti ation . Not Available [facility] ([facility]) [address] [facility], [place], [address], 02/18/2025 11:33:18 02/17/20 25 02/18/2025 IGP, APTIM A HPV, RFX 16/18 ,45 HPV genotype reflex Commen t Crite leonor not met, HPV Genot ype not perfo rmed. Not Available [facility] ([facility]) [address] [facility], [place], [address], 02/18/2025 11:33:18 01/22/2001/21/2025 CT, head + brain , w/o contr ast No observ ation record ed. [address], [place], [address], 01/25/2025 13:14:57 Result Notes None recorded. Problems Name Problem SNOMED Code Status Onset Date Resolution Date Notes Provider Name and Address Organization Details Recorded Time Blood glucose outside reference range 247872247 Active 2020 Ze Dillon MD Attn: Kandice webster,[address] [facility], [place], [address], [facility] 11:53:24 Left lower quadrant pain 046941063 Active 2020 Ze Dillon MD Attn: Kandice webster,[address] [facility], [place], [address], [facility] 06/08/202 1 11:53:37 Blurring of visual image 317944583 Active 2020 Ze Dillon MD Attn: Accountin g,[address] [facility], [place], [address], [place] [facility] 1 11:53:48 Obesity 812931097 Active 2020 Ze Dillon MD Attn: Accountin g,[address] [facility], [place], [address], [place] [facility] 1 11:53:58 Body mass index 30+ - obesity 250560837 Active 2020 34.4 Ze Dillon MD Attn: Accountin g,[address] [place], [address], [place] [facility] 11:54:29 Bilateral heel pain 7470242427542 9108 Active 2020 Ze Dillon MD Attn: Accountin g,[address] [place], [address], [place] [facility] 1 16:59:41 At increased risk for latex allergy response 610329533 Active 2020 Ze Dillon MD Attn: Accountin g,[address] [place], [address], [place] [facility] 1 17:03:36 Active immunizatio n Active 2020 Ze Dillon MD Attn: Accountin g,[address] [place], [address], [place] [facility] 1 17:03:55 Plantar fasciitis of right foot 9590022282489 9101 Active 2021 RAVI BUENROSTRO Attn: Accountin g,[address] [place], [address], [place] [facility] 2 10:53:08 Type 2 diabetes mellitus 32111710 Active 2022 RAVI BUENROSTRO Attn: Accountin g,[address] [place], [address], [place] [facility] 3 09:34:21 History of surgery 585905434 Active 2022 RAVI BUENROSTRO Attn: Accountskye eleanor,[address] [facility], [place], [address], [place] [facility] 3 15:59:36 Left upper quadrant pain 469317786 Active 2022 RAVI BUENROSTRO Attn: Accountin g,[address] [facility], [place], [address], [place] [facility] 3 08:23:07 Muscle pain 88603571 Active 2022 RAVI BUENROSTRO Attn: Accountskye eleanor,[address] [facility], [place], [address], [place] [facility] 3 08:23:08 Mass of left breast 3599032701744 9103 Active 2022 RAVI BUENROSTRO Attn: Accountin eleanor,[address] [place], [address], [place] [facility] 3 09:07:10 Sprain of right ankle 7732083708599 9105 Active 2022 RAVI BUENROSTRO Attn: Accountin g,[address] [place], [address], [place] [facility] 3 15:09:41 Major depressive disorder 589451871 Active 2023 RAVI BUENROSTRO Attn: Accountskye g,[address] [place], [address], [place] [facility] 4 09:07:44 Female stress incontinenc e 69879900 Active 2023 RAVI BUENROSTRO Attn: Accountin g,[address] [place], [address], [place] [facility] 4 09:33:10 Benign neoplastic disease 07516393 Active Merrill Gupta MD Attn: Kandice webster,[address] [facility], [place], [address], [facility] 4 16:36:19 Problem Notes None recorded. Procedures Surgical History Date Name Laterality Status Provider Name and Address Organization Details Recorded Time 4 Injection completed MAT REYNAGA DPM [address], [place], [address], [place] [facility] 05/19/2024 15:52:23 4 Injection completed MAT REYNAGA DPM [address], [place], [address], [place] [facility] 05/05/2024 16:17:18 4 Injection completed MAT REYNAGA DPM [address], [place], [address], [place] [facility] 04/14/2024 16:42:49 3 Date of Last Mammogram completed Yumiko Childress [place] [facility] 10/09/2024 11:19:53 1 Date of Last Pap Smear completed RAVI BARAJAS Attn: Accounting,[address] [facility], [place], [address], [place] [facility] 03/09/2021 11:10:57 4 Generic Procedure completed Merrill Gupta MD Attn: Accounting,[address] [facility], [place], [address], [place] [facility] 09/10/2014 16:36:19 Imaging Results None recorded. Procedure Notes None recorded. Medical Equipment None [...] Available Not Available metformin 500 mg tablet TAKE ONE TABLET BY MOUTH ONCE EVERY DAY FOR DIABETES 02/16 completed Not Available Not Available Not Available venlafaxine ER 37.5 mg capsule,ext ended release 24 hr TAKE ONE CAPSULE BY MOUTH AT BEDTIME 02/02 completed Not Available Not Available Not Available venlafaxine ER 75 mg capsule,ext ended release 24 hr TAKE ONE CAPSULE BY MOUTH EVERY MORNING 02/02 completed Not Available Not Available Not Available gabapentin 600 mg tablet Take 1 tablet 3 times a day by oral route for 30 days. 2023 active Not Available Not Available Not Avai lable lisinopril 20 mg-hydrochl orothiazide 12.5 mg tablet TAKE 1 Tablet BY MOUTH EVERY MORNING FOR BLOOD PRESSURE AND FLUID RETENTION active Not Available Not Available No t Available hydrocodone 5 mg-acetamin ophen 325 mg tablet TAKE 1 TABLET BY MOUTH EVERY 4 HOURS NEEDED FOR PAIN 06/04 completed Not Available Not Available Not Available Anucort-HC 25 mg suppository INSERT 1 SUPPOSITO RY RECTALLY THREE TIMES DAILY 06/04 completed Not Available Not Available Not Available peg-electro lyte solution 420 gram oral solution TAKE DIRECTED 02/16 completed Not Available Not Available Not Available triamcinolo ne acetonide 0.1 % topical cream APPLY A THIN LAYER TO THE AFFECTED AREA(S) BY TOPICAL ROUTE 2 TIMES PER DAY 02/16 completed Not Available Not Available Not Available amoxicillin 500 mg tablet TAKE ONE TABLET BY MOUTH EVERY 8 HOURS UNTIL ALL TAKEN 03/03 completed Not Available Not Available Not Available Kenalog 40 mg/mL suspension for injection Take 0.25 mL by injection route. 02/16 completed Not Available Not Available Not Available benzonatate 100 mg capsule Take 1 capsule 3 times a day by oral route. 06/04 completed Not Available Not Available Not Available simvastatin 20 mg tablet TAKE ONE TABLET BY MOUTH AT BEDTIME FOR CHOLESTER OL active Not Available Not Available No t Available metformin 1,000 mg tablet TAKE ONE TABLET BY MOUTH TWICE DAILY EVERY MORNING AND EVERY EVENING WITH FOOD FOR DIABETES active Not Available Not Available No t [...] & AT BEDTIME FOR PAIN MANAGEMEN T 02/02 completed Not Available Not Available Not Available omeprazole 20 mg capsule,del ayed release TAKE ONE CAPSULE BY MOUTH ONCE EVERY DAY FOR STOMACH active Not Available Not Available No t Available lisinopril 10 mg-hydrochl orothiazide 12.5 mg tablet TAKE ONE TABLET BY MOUTH EVERY MORNING FOR FLUID RETENTION AND FOR BLOOD PRESSURE active Not Available Not Available No t Available methylpredn isolone 4 mg tablets in a dose pack Follow the package direction s 02/02 completed Not Available Not Available Not Available ondansetron 4 mg disintegrat ing tablet DISSOLVE 1 TABLET IN MOUTH EVERY 8 HOURS NEEDED 03/09 completed Not Available Not Available Not Available dicyclomine 10 mg capsule TAKE ONE CAPSULE BY MOUTH THREE TIMES DAILY, IN THE MORNING, AT MID-DAY & AT BEDTIME NEEDED FOR ABDOMINAL PAIN active Not Available Not Available No t Available naproxen 500 mg tablet TAKE 1 TABLET BY MOUTH TWICE DAILY 02/02 completed Not Available Not Available Not Available amoxicillin 875 mg-potassiu m clavulanate 125 mg tablet Take 1 tablet every 12 hours by oral route for 7 days. 11/30 completed Not Available Not Available Not Available duloxetine 30 mg capsule,del ayed release TAKE ONE CAPSULE ONCE EVERY DAY 02/02 completed Not Available Not Available Not Available duloxetine 60 mg capsule,del ayed release Take 1 capsule every day by oral route for 30 days. 02/02 completed Not Available Not Available Not Available Calcium with Vitamin D 600 mg-10 mcg (400 unit) tablet Take 1 tablet twice a day by oral route. 2021 active Not Available Not Available Not Avai lable OneTouch Verio test strips Take 1 strip every day by miscell. route for 30 days. 2021 active Not Available Not Available Not Avai lable Farxiga 10 mg tablet TAKE 1 TABLET BY MOUTH ONCE DAILY active Not Available Not Available No t Available Trulicity 0.75 mg/0.5 mL subcutaneou s pen injector Inject 0.75 mg every week by subcutane ous route. 02/02 completed Not Available Not Available Not Available Flonase Allergy Relief 50 mcg/actuati on nasal spray,suspe nsion [place] 1 spray every day by intranasa l route. 11/30 completed Not Available Not Available Not Available 1 mg-20 mcg (24)/75 mg (4) tablet Take 1 tablet every day by oral route. 06/04 completed Not Available Not Available Not Available Ozempic 0.25 mg or 0.5 mg (2 mg/1.5 mL) subcutaneou s pen injector Inject 0.25 mg every week by subcutane ous route. 02/02 completed Not Available Not Available Not Available ID NOW COVID-19 Test Kit USE DIRECTED 11/30 completed Not Available Not Available Not Available Vitals Date Recorded Body height Body mass index (BMI) Body weight Provider Name and Address Organization Details Last Updated DateTime 01/27/2025 154.94 cm 34.5 kg/m2 72447.69 g Lucia Hernández [facility] 01/27/2025 14:04:03 Date Recorded Body height Body mass index (BMI) Body weight Heart rate Oxygen saturation Oxygen saturation in Arterial blood by Pulse oximetry Systolic blood pressure Diastolic blood pressure Provider Name and Address Organization Details Last Updated DateTime 154.94 cm 34.2 kg/m2 39877.2 2 g 82 /min 99 % 99 % 172 mm[Hg] 89 mm[Hg] Lesley Martinez [facility] 10:37:20 Date Recorded Systolic blood pressure Diastolic blood pressure Provider Name and Address Organization Details Last Updated DateTime 02/16/2025 138 mm[Hg] 87 mm[Hg] RAVI BUENROSTRO Attn: Accounting,[address] [place], [address], [facility] 02/16/2025 12:07:05 Date Recorded Body height Body mass index (BMI) Body weight Heart rate Oxygen saturation Oxygen saturation in Arterial blood by Pulse oximetry Provider Name and Address Organization Details Last Updated DateTime 5 154.94 cm 33.7 kg/m2 35367.5 4 g 60 /min 99 % 99 % Lesley Martinez [facility] 5 12:05:16 Date Recorded Body height Body mass index (BMI) Body weight Heart rate Body temperature Systolic blood pressure Diastolic blood pressure Provider Name and Address Organization Details Last Updated DateTime 4 154.94 cm 36.1 kg/m2 88699.4 2 g 75 /min 98.3 [degF] 135 mm[Hg] 76 mm[Hg] Pallavi Austin MA [facility] 4 15:14:45 Date Recorded Body height Body mass index (BMI) Body weight Heart rate Body temperature Systolic blood pressure Diastolic blood pressure Provider Name and Address Organization Details Last Updated DateTime 4 154.94 cm 36.3 kg/m2 17840.8 1 g 85 /min 98.3 [degF] 156 mm[Hg] 88 mm[Hg] Pallavi Austin MA [facility] 4 15:29:05 Date Recorded Body height Body mass index (BMI) Body weight Heart rate Oxygen saturation Oxygen saturation in Arterial blood by Pulse oximetry Systolic blood pressure Diastolic blood pressure Provider Name and Address Organization Details Last Updated DateTime 4 154.94 cm 36.1 kg/m2 43835.1 4 g 91 /min 99 % 99 % 138 mm[Hg] 98 mm[Hg] Lesley Martinez MA [facility] 4 12:28:33 Social History Question Answer Notes LastModified by Organizat ion Details LastModified Time Tobacco Smoking Status Never Smoker Consuelo Contreras MA null, [facility] 03/09/2021 10:21:40 Do You Have An Advance Directive? No Information not available 03/09/2021 In The 14 Days Before Symptom Onset, Have You Had Close Contact With A Laboratory-confir med COVID-19 While That Case Was Ill? Yes [email or web address] Information not available 11/30/2022 In The 14 Days Before Symptom Onset, Have You Had Close Contact With A Person Who Is Under Investigation For COVID-19 While That Person Was Ill? Yes [email or web address] Information not available 11/30/2022 Have You Been To An Area Known To Be High Risk For COVID-19? Yes Went To ER [email or web address] Information not available 11/30/2022 What Was The Date Of Your Most Recent Tobacco Screening? 01/27/2025 [email or web address] Information not available 01/27/2025 What Is Your Relationship Status? Information not available 03/09/2021 Are You Sexually Active? No Information not available 03/09/2021 Do You Have Smoke And Carbon Monoxide Detectors In Your Home? Yes Information not available 03/09/2021 Are You Passively Exposed To Smoke? No Information no t available 03/09/2021 Has Tobacco Cessation Counseling Been Provided? Yes [email or web address] Information not available 2021 On What Date Was Tobacco Cessation Counseling Provided? 06/30/2024 [email or web address] Information not available 06/30/2024 Sex: Female Functional Status Question Answer Note LastModified by Organizat ion Details LastModified Time Do you use any illicit or recreational drugs? No Information not available 03/09/2021 Do you or have you ever used any other forms of tobacco or nicotine? No Information not available 03/09/2021 What is your level of alcohol consumption? None Information not available 03/09/2021 Mental Status None recorded. Family History Relationship Description Onset Age of this Age Resolved Age Notes LastModified by Organization Details LastModified Time Mother Hypertensive disorder [email or web address] Not available 2013 14:22:57 Mother Diabetes mellitus [email or web address] Not available 2013 14:22:57 Mother Malignant neoplasm of uterus 35 Not available 2024 12:27:38 Medical History Condition Response Heart Problems N [...] e and Address Organization Details Recorded Time COVID-19, mRNA, LNP-S, PF, 30 mcg/0.3 mL dose 1 completed Lesley Martinez [place], [place] [facility] 02/02/2025 10:34:32 COVID-19, mRNA, LNP-S, PF, 30 mcg/0.3 mL dose 1 completed Lesley [place] [facility] 02/02/2025 10:34:32 COVID-19, mRNA, LNP-S, PF, 30 mcg/0.3 mL dose, monty-sucrose 2 completed Lesley [place] [facility] 02/02/2025 10:34:32 Influenza, split virus, quadrivalent, preservative 1 completed Marcelle Ir[place] [facility] 09/11/2021 17:51:11 pneumococcal polysaccharide PPV23 2 completed RAVI BUENROSTRO Attn: Accounting,[address] [place], [address], [place] [facility] 07/13/2022 13:59:55 Tdap 5 completed RAVI BUENROSTRO Attn: Accounting[address] [place], [address], [place] [facility] 02/02/2025 11:41:03 Past Encounters Encounter ID Performer Location Encounter Start Date Encounter Closed Date Diagnosis/Indication Diagnosis SNOMED-CT Code Diagnosis ICD10 Code Diagnosis Note [id number] MD Isabela Caroill e [facility] ([employer]) [address] [place] [address] 09/10/2014 13:12:59 09/10/2014 16:57:50 Benign neoplastic disease [id number] RAVI BARAJAS ([employer]) [address] [place] [address] 03/09/2021 09:44:00 03/17/2021 11:34:18 Gynecologic examination 87724207 Z01.419 -pelvic examinatio n completed today, unremarkab le -cervical cancer screening: last Pap ~2-3 years ago with unknown results, repeated today. -referral for screening mammogram issued for routine breast cancer screening -routine nuswab completed, treat as needed -Educated osteoporos is prevention including calcium rich diet, weight bearing exercise. Will start supplement . Abnormal u terine bleeding 3427634024 9100 N93.9 X 1 month, resolved spontaneou sly. Likely ovulatory dysfunctio n. Will follow up labs. Expectant management . 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 Obesity 153231231 E66.9 Blurring o f visual image 611477017 H53.8 [id number] MD Alana Purvis (Adult Med) [address] [place] [address] 09/11/2021 16:13:33 09/12/2021 10:37:21 Bilateral heel pain 0906469509 2315772 M79.671 M79.672 At [facility] ed risk for latex allergy response 826302438 Z91.89 Letter sent Active immunization 3387 9002 Z [id number] RAVI BUENROSTRO [facility] [address] [place] [address] 2021 16:34:08 11/03/2021 12:37:50 Prediabetes 568959737 R73.03 hx of predm - avoid sugary sodas, sweets, and starchy foods like bread, rice, potatoes, noodles, and tortillas- Exercise and weight loss can be very helpful Essential hypertension 68316396 I10 Today BP 150/9011/2 021 154/966/20 21 [...] alcohol, caffeine all increase BP Contact dermatitis 05999 004 L25.9 Apply plenty of lotion on [...] The parents verbalized understand ing. Muscle twitch 58525672 R 25.3 left cheek x a few days [id number] RAVI BUENROSTRO [facility] [address] [place] [address] 11/07/2021 09:11:37 11/08/2021 07:58:57 [id number] RAVI BUENROSTRO [facility] [address] [place] [address] 11/15/2021 16:39:56 11/20/2021 09:58:38 Essential hypertension 17161544 I10 Today BP 138/88. BP controlled at home. F/u one moth. discussed weight loss to imrove glucose and htn. Advised to check BP regularly with a goal of <140/90, if BP consistent ly >140/90, advised to contact clinicDisc ani cueto weight loss and diet is best way to control BPAdvised 30 minutes of exercise minimum dailyAdvis ed tobacco, alcohol, caffeine all increase BP Diabetes mellitus 541035 09 E11.9 A1C 6.6. newly diagnosed DM. Patient has been having headaches and at [facility] time will initiate metformin. Patient was given [...] exam - foot exam at next visit [id number] RAVI BUENROSTRO [facility] [address] [place] [address] 12/20/2021 16:38:10 12/22/2021 09:43:28 Essential hypertension 76450678 I10 Today BP 158/90. BP controlled at home. but ran out of medication over one week ago. 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 will resend. Advised to check BP regularly with a goal of <140/90, if BP consistent ly >140/90, advised to contact clinicDisc ani Amaroe rom weight loss and diet is best way to control BPAdvised 30 minutes of exercise minimum dailyAdvis ed tobacco, alcohol, caffeine all increase BP Diabetes mellitus 580127 09 E11.9 A1C 6.6. newly diagnosed DM. Patient has been having headaches and at thsi time will initiate metformin. Patient was given [...] exam at next visit Pain in pelvis 88059417 R10.2 patient went to hospital for severe [...] or appendicit is. Cyst of left ovary 47393 15245 [address]17717 N83[address] [facility] at [facility] showing multiple ovarian cysts [id number] RAVI BUENROSTRO [facility] [address] [place] [address] 07/10/2022 14:35:09 07/17/2022 08:32:01 Essential hypertension 54307883 I10 Today BP 140/80. BP controlled at home. but ran out of medication two days ago and needs refills. denies cp, sob Advised to check BP regularly with a goal of <140/90, if BP consistent ly >140/90, advised to contact clinicDisc ussed VENKAT dietAdvise d weight loss and diet is best way to control BPAdvised 30 minutes of exercise minimum dailyAdvis ed tobacco, alcohol, caffeine all increase BP Diabetes mellitus 655888 09 E11.9 A1C 6.2% (06/2022) 6.6% (oi ng well on metformin w/o s/e.eye exam: referral sentfoot exam: normal 07/11/22pps v23: 07/10/2022 tatin: non compliant, will resendACEi : Lisinopril 10mg Administra tion of pneumococcal vaccine 67727938 Z23 administer ed today HIV screening 036331288 Z11.4 Depression screening 171 575573 Z13.31 negative Obesity 877343641 E66.9 BMI 33.310 lbw eight losskeep up the good work Bilateral carpal tunnel syndrome 9970549894 5245762 G56.03 - NSAID- NIGHT BRACE- F/U ONE MONTH- may need EMG and ortho referral Type 2 flaca betes mellitus 79334874 E11.9 Plantar fa sciitis of right foot 9087056266 8037517 M72.2 - RICE- FROZEN WATER BOTTLE rolling x 15 mins- Naproxen- shoe inserts- avoid flip flops [id number] RAVI BARAJAS ([employer]) [address] [place] [address] 08/08/2022 15:38:54 08/14/2022 16:26:08 Uterine leiomyoma 36708664 D25.9 TVUS 12/2021 showed multiple small uterine fibroids <2cm, uterus not enlarged. Discussed the results in more detail and reassured pt of this finding. We discussed using contracept jaden methods to help reduce the amount of bleeding and pelvic pain associated with her menses and she agreed to try OCP. Follow-up in 3 months to re-assess and evaluate how the medication is working to control her symptoms. Functional cyst of ovary 180036959 N83.299 TVUS showing bilateral ~1cm simple cysts/foll icles. Discussed functional ovarian cysts with the patient and provided reassuranc e and care instructio ns. OCPs for prevention as above. [id number] RAVI BUENROSTRO [facility] [address] [place] [address] 11/02/2022 12:22:49 11/07/2022 15:43:50 Acute sinusitis 20831024 J01.90 3 weeks of URI with ESQUIVEL, [...] without improvemen t with NSAID/tyle nol. Cough 39004929 R05.9 benzonatat e drops prn Obesity 820802600 E66.9 BMI 33.410 lb weight losskeep up the good work [id number] RAVI BUENROSTRO [facility] [address] [place] [address] 11/30/2022 16:05:08 12/04/2022 11:25:05 Screening for malignant neoplasm of colon 828304788 Z12.11 has pressure and new constipati on Constipation 75205688 K5 9.00 patient has had one week of abnormal BM and constipati on. She feels pressure on her bottom and passed a lot of blood in stool one week ago. This is first occurrence .PEX: abdomen soft. no masses, no pain elicited - miralax- colonoscop y Melanocytic nevus 084240 001 D22.9 small pencil point sized AK on right side of face near eye. She states it has grown. Patient reassured these are benign but would like to see dermatolog ist [id number] RAVI BUENROSTRO [facility] [address] [place] [address] 02/07/2023 12:25:51 02/07/2023 13:03:37 Type 2 diabetes mellitus 74468659 E11.9 A1C 6.3% (01/2023) 6.2% (06/2022) 6.6% (10/2021) doing well on metformin w/o s/e. eye exam: referral sent foot exam: normal 07/11/22 ppsv23: 07/10/2022 Statin: non compliant, will resend ACEi: Lisinopril 10mg HIV screening 720759825 Z11.4 History of surgery [address] harley. Had colonoscop y 12/28/22 showing appendix mass effect/ CT abd/pel w/ contrast 01/04/23 showed dilated appendix -mucocele. off work 01/25- 3. appendix surgically removed.he aling well4 small incisions in abdomen healing well without edema, erythema or drainage [id number] RAVI BUENROSTRO [facility] [address] [place] [address] 06/04/2023 15:31:47 06/04/2023 16:35:21 Type 2 diabetes mellitus 55057669 E11.9 A1C 6.0% (05/2023) 6.3% (01/2023) 6.2% (06/2022) 6.6% (10/2021) doing well on metformin w/o s/e. eye exam: has not scheduled foot exam: normal 07/11/22 ppsv23: 07/10/2022 Statin: states she is complaint now ACEi: Lisinopril 10mg Muscle pain 52396393 M79 .10 muscle pain in arms and legs that is occasional and worse after work. 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 denies joint pain, falls, swelling. She is complaint on statin now. - labs- NSAID Left upper quadrant pain 163794800 R10.12 vague LUQ pain X 2 months w.o diarrhea, constipati on, nausea, vomiting.P EX: mild pain w/o rebound tenderness on palpation to LUQ w/o spleen enlargemen t, masses palpated. [id number] RAVI BUENROSTRO [facility] [address] [place] [address] 07/01/2023 16:15:28 07/01/2023 16:37:11 Mass of left breast 0814682382 2609595 N63.20 lump in left breast palpated at 6 oclock, newUS and diagnostic ordered [id number] RAVI BUENROSTRO [facility] [address] [place] [address] 10/01/2023 16:31:40 10/04/2023 11:13:25 Obesity 094482890 E66.9 BMI 35.710 lb weight losskeep up the good work Sprain of right ankle 11 95830621 5735428 S93.401A has band at [facility] call in [facility] to [facility] Emotional stress 1262931 09 Z73.3 pt found out 12 year old daughter got by 20 yo maleshe is coping with stress and does have daughter in therapy and Male is in prisonshe will f/u here for talk as no access to [facility] [id number] MAT REYNAGA DPM [facility] [address] [place] [address] 10/23/2023 10:56:50 10/24/2023 10:48:46 Sprain of right ankle 6062683425 0465282 S93.411A S93.421A The sprained area was evaluated [...] and strengthen the area. Pain of ri [facility] ankle joint 7468818839 7904599 M25.571 Localized edema 91275904 4 R60.0 The patient was educated about the importance of exercise, diet and the need to protect their feet in order to prevent injury or ulceration . [id number] MAT REYNAGA DPM [facility] [address] [place] [address] 11/20/2023 11:07:05 11/20/2023 14:53:39 Sprain of right ankle 1656986735 4567110 S93.411D S93.421D The sprained area was evaluated [...] weaned out by physcial therapy Pain of located within [facility] ankle joint 2079496983 2590958 M25.571 Localized edema 13154342 4 R60.0 The patient was educated about the importance of exercise, diet and the need to protect their feet in order to prevent injury or ulceration . [id number] MAT REYNAGA DPM [facility] ts [address] [place] [address] 12/24/2023 09:45:20 12/30/2023 13:24:57 Sprain of right ankle 2545999972 1704155 S93.411D S93.421D The sprained area was evaluated [...] therapy Pain of ri ght ankle joint 6090740788 3001081 M25.571 will consider sinus tarsi injection at next appointmen t Localized edema 70157920 4 R60.0 The patient was educated about the importance of exercise, diet and the need to protect their feet in order to prevent injury or ulceration . Right foot neuritis 2924 954103 74064 G57.81 The area of neuritis was evaluated [...] scar tissue and adhesions around the nerve. [id number] RAVI BUENROSTRO [facility] [address] [place] [address] 01/28/2024 08:32:45 01/28/2024 10:00:32 Mass of left breast 2347903725 2791643 N63.20 lump in left breast palpated at 6 o'clockUS and diagnostic ordered diagnostic mamm 07/2023:1. No correlate for palpable abnormalit y on mammogram. Small conglomera tion ofcysts at the 6:00positi on, 2 cm from the nipple is seen. This could be an incidental finding.Co ntinued follow-upi s recommende d. Lack of definitive correlate should not delay biopsy or otherfurth er evaluation ifclinical ly indicated. Type 2 flaca betes mellitus 57450294 E11.9 A1C 6.0% (05/2023) 6.3% (01/2023) 6.2% [...] to administer . eye exam: 11/19/2023 at [facility] foot exam: normal 09/2024 ppsv23: 07/10/2022 Statin: advised re-startin g and benefits ACEi: Lisinopril 10mg Major depr essive disorder 720872993 F32.9 - advised counseling -Patient was educated [...] emerge). Additional ly, patient has suicide hotline #. - f/u one month - call with questions Female str ess incontinence 37754490 N39.3 loss of control of urine with sneezing or coughing.- therapy [id number] MAT REYNAGA DPM [facility] [address] [place] [address] 01/28/2024 11:33:05 01/29/2024 09:14:01 Sprain of right ankle 7615740549 5868061 S93.411D S93.421D The sprained area was evaluated [...] therapy Pain of ri ght ankle joint 9590613504 6445739 M25.571 will consider sinus tarsi injection at next appointmen t Localized edema 07127489 4 R60.0 The patient was educated about the importance of exercise, diet and the need to protect their feet in order to prevent injury or ulceration . Right foot neuritis 2924 280138 58941 G57.81 The area of neuritis was evaluated [...] scar tissue and adhesions around the nerve. [id number] MAT REYNAGA DPM [facility] [address] [place] [address] 03/03/2024 16:14:56 03/04/2024 15:08:41 Sprain of right ankle 2446611863 6987830 S93.411D The sprained area was evaluated and [...] until weaned out by physcial therapy by [facility] physical therapy=me dial ankle pain has resolved Pain of ri ght ankle joint 8456191678 0199916 M25.571 will consider sinus tarsi injection at next appointmen t Localized edema 38291192 4 R60.0 The patient was educated about the importance of exercise, diet and the need to protect their feet in order to prevent injury or ulceration . Right foot neuritis 2924 844433 05176 G57.81 The area of neuritis was evaluated [...] scar tissue and adhesions around the nerve. [id number] RAVI BUENROSTRO [facility] [address] [place] [address] 03/03/2024 09:42:49 03/03/2024 10:09:30 Major depressive disorder 568819159 F32.9 PHQ 10. INCREASE dose today. close [...] #.- f/u one month- call with questions [id number] MAT REYNAGA DPM [facility] [address] [address] 04/14/2024 16:02:03 04/14/2024 16:42:03 Sprain of right ankle 2089186744 8047466 S93.411D The sprained area was evaluated and [...] until weaned out by physcial therapy by [facility] physical therapy=me dial ankle pain has resolved Pain of ri ght ankle joint 0002290544 1957950 M25.571 will consider sinus tarsi injection at next appointmen t Localized edema 26476497 4 R60.0 The patient was educated about the importance of exercise, diet and the need to protect their feet in order to prevent injury or ulceration . Right foot neuritis 2924 334547 22005 G57.81 The area of neuritis was evaluated [...] Sinus tars i syndrome of right ankle 7959414007 0944823 M25.194 [id number] [facility] [address] [place] [address] 05/05/2024 15:49:50 05/06/2024 09:24:45 Sprain of right ankle 9934812143 6148829 S93.411D The sprained area was evaluated and [...] until weaned out by physcial therapy by [facility] physical therapy=me dial ankle pain has resolved Pain of ri ght ankle joint 0328796946 7681113 M25.571 will consider sinus tarsi injection at next appointmen t Localized edema 60178381 4 R60.0 The patient was educated about the importance of exercise, diet and the need to protect their feet in order to prevent injury or ulceration . Right foot neuritis 2924 109841 68711 G57.81 The area of neuritis was evaluated [...] Sinus tars i syndrome of right ankle 6581178737 7274400 M25.025 [id number] MAT REYNAGA DPM [facility] [address] [place] [address] 05/19/2024 14:56:07 05/20/2024 07:56:46 Sprain of right ankle 2737363325 1628293 S93.411D The sprained area was evaluated and [...] until weaned out by physcial therapy by [facility] physical therapy=me dial ankle pain has resolved Pain of ri ght ankle joint 6701233734 3024048 M25.571 will consider sinus tarsi injection at next appointmen t Localized edema 46087106 4 R60.0 The patient was educated about the importance of exercise, diet and the need to protect their feet in order to prevent injury or ulceration . Right foot neuritis 2924 494352 88608 G57.81 The area of neuritis was evaluated [...] Sinus tars i syndrome of right ankle 1853521903 1056556 M25.368 [id number] MAT REYNAGA DPM [facility] ts [address] [place] [address] 06/30/2024 15:19:50 07/01/2024 08:37:26 Sprain of right ankle 4160344566 1818885 S93.411D The sprained area was evaluated and [...] until weaned out by physcial therapy by [facility] physical therapy=me dial ankle pain has resolved Pain of ri ght ankle joint 5089848407 4727236 M25.571 will consider sinus tarsi injection at next appointmen t Localized edema 54232747 4 R60.0 The patient was educated about the importance of exercise, diet and the need to protect their feet in order to prevent injury or ulceration . Right foot neuritis 2924 293864 16527 G57.81 The area of neuritis was evaluated [...] Sinus tars i syndrome of right ankle 5292163275 4741674 M25.733 [id number] Leland Campoverde MD [facility] [address] [place] [address] 07/16/2024 12:19:04 07/16/2024 13:04:54 Gastroesophageal reflux disease 859282842 K21.9 refill Pain in pelvis 79834571 R10.2 patient with recurrent pain in RLQ pain. Last episode of similar pain she needed to get her appendix out. no red flad sx. will send to have US and will f/u with her GI.She understand s to go to ER with worsening abdominal pain, fever, chills, cp, sob [id number] Leland Campoverde MD [facility] [address] [place] [address] 02/02/2025 10:30:14 02/02/2025 11:46:46 Type 2 diabetes mellitus 43987341 E11.9 A1C 6.0% (05/2023) 6.3% (01/2023) 6.2% (06/2022) 6.6% (10/2021) stop metformin and start ozempic. Patient denies fam hx of thyroid cancer, personal hx pancreatit is. Medication side effects were reviewed with patient and include TRISTAN, pancreatit is, nausea, vomiting, stomach upset. Patient was shown pen and was shown how to clean area, inject pen, and how often to administer . eye exam: 11/19/2024 at [facility] foot exam: normal 01/2025 ppsv23: 07/10/2022 Statin: advised re-startin g and benefits ACEi: Lisinopril 10mg Obesity 757886413 E66.9 BMI 34.210 lb weight losskeep up the good work Administra tion of diphtheria, pertussis, and tetanus vaccine 750975723 Z23 Hypertensive disorder 38 099316 I10 Not controlled today i clinic or at home. We will increase loss of lisinopril at this time. Patient is to check blood pressure at home and does have follow up with me in 1 week. Advised to check BP regularly with a goal of <140/90, if BP consistent ly >140/90, advised to contact clinicDisc ussed DASH dietAdvise d weight loss and diet is best way to control BPAdvised 30 minutes of exercise minimum dailyAdvis ed tobacco, alcohol, caffeine all increase BP Patient is advised to go to the emergency room if they develop weakness, worst ESQUIVEL of their life, chest pain, shortness of breath. Diabetes mellitus 668406 09 E11.9 A1C 6.2% (06/2022) 6.6% (2doi ng well on metformin w/o s/e.eye exam: referral sentfoot exam: normal 07/11/22pps v23: 07/10/2022 tatin: non compliant, will resendACEi : Lisinopril 10mg Stress due to family tension 9968613082 46417 Z63.8 Patient found out daughter is who is 14 is sexually active with a 20-year-ol d man. She has forbidden her daughter from seeing him but daughter does sneak out. 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 [id number] Leland Campoverde MD [facility] [address] [place] [address] 02/16/2025 11:53:03 02/16/2025 12:31:59 Sampling of cervix for Papanicolaou smear [id number] Z12.4 pelvic examinatio n completed today, unremarkab le-cervica l cancer screening: repeated today.-ref erral for diagnostic mammogram given to patient-Ed ucated osteoporos is prevention including calcium rich diet, weight bearing exercise. Will start supplement . Mammography abnormal [id number] R92.8 patient with abnormal mammogram in 2022 and did not follow up at 6 months. She states the area of concern has not grown in size and she denies any new symptoms in her breast. Patient has been given mammogram and ultrasound and is advised to schedule as soon as possible. IMPRESSION : ===== 1. No correlate for palpable abnormalit y on mammogram. Small conglomera tion of cysts at the 6:00 position, 2 cm from the nipple is seen. This could be an incidental finding. Continued follow-up is recommende d. Lack of definitive correlate should not delay biopsy or other further evaluation if clinically indicated. Health Concerns Section Related Observation LastModified by Organization Detai ls LastModified Time None Recorded Concern Status LastModified by Organization Details LastModified Time None Recorded Advance Directives Directive N: Payers Insurance Date Sequence Insurance Name Policy Number Policy [place] Covered Member ID [place] Member ID Guarantor Name 08/27/2024 1 [place] [facility] Arti Yvonne [id number] Arti Yvonne 08/08/2022 SLIDING FEE SCHEDULE - DISCOUNT Arti Yvonne 08/08/2022 SLIDING FEE SCHEDULE - DISCOUNT Arti Yvonne 11/02/2022 1 *SELF PAY* Ro enoch Yvonne 03/27/2021 SLIDING FEE SCHEDULE - DISCOUNT Arti Yvonne 08/08/2022 SLIDING FEE SCHEDULE - DISCOUNT Arti Yvonne 02/13/2025 1 [facility] - DOS ON OR AFTER 21 (MEDICAID REPLACEMENT - HMO) Arti Yvonne [id number] Arti Yvonne 08/27/2024 [facility] - DOS ON OR AFTER 21 (MEDICAID REPLACEMENT - HMO) Arti Yvonne [id number] Arti Yvonne 03/09/2021 SLIDING FEE SCHEDULE - DISCOUNT Arti Yvonne 08/27/2024 [place] [facility] Arti Yvonne [id number] Arti Yvonne Notes Date Note Type Note Provider Name and Address Organization Details Recorded Time 4 text/html Patient presents for f/u sharp pain [...] pain when walking MAT REYNAGA DPM [address] [place], [address], [facility] 05/19/2024 15:56:29 4 text/html Patient presents for f/u sharp pain [...] when walking MAT REYNAGA DPM [address], [place], [address], [facility] 06/30/2024 16:03:32 4 text/html Arti presents for abdominal pain she states she has had continues abdominal pain. She will reach out to her GI and f/u. denies nasuea, vomiting, fever, yellowing of skin or eyes. RAVI BUENROSTRO Attn: Accounting, [facility], [place], [address], [facility] 07/22/2024 13:30:37 5 text/html Arti presents for f/u on Diabetes and stress She states over the last few months her blood sugars fasting have gone above 200. Post meals they dip into the 300s. She also notes her blood pressure at home has been in the upper 140 systolic. She has had occasional headaches and attributes it to her blood pressures. She is taking her lisinopril with hydrochlorothiazide daily. She is not taking her statin but is open to start. She only takes 1 metformin per day at 500 mg. She notes slight numbness in her right 5th toe on occasion. Denies burning in her feet. Denies chest pain or shortness of breath. patient is concerned about daughter seeing a man in his 20s. Daughter is only 14. She found tests and plan B in her room. She states that she sneaks out to go see this person. She has told her to stop the relationship but daughter refuses. RAVI BUENROSTRO Attn: Accounting,[address] [facility], [place], [address], [facility] 02/02/2025 11:41:30 5 text/html 49 yo who presents for Pap and clinical breast exam uterine cancer mom age 35mammogram abnormal 2022 LMP:Last Pap:2020 NILM, HPV-Last mammogram: ABNORMAL IN 2022 NEEDING REPEAT DIAGNOSTICS she states she does not notice any changes in her breast. In the area of concern has not changed in size.Fam hx: Mother had uterine cancer at age 35. Denies breast, ovarian, or cervical cancer and family RAVI BUENROSTRO Attn: Accounting,[address] [place], [address], [facility] 02/16/2025 12:31:48 OBGyn Episode No OBEpisode recorded.
[2025-04-02 13:49] VITALS: BP 134/87; PULSE 72; RESP 20; TEMP 36.4; O2SAT 99; BMI 32.8
[2025-04-02] MEDS: LACTATED RINGERS 1,000 ML 150 ML IV CONT (13:52)
[2025-04-02 13:53] LABS: BEDSIDEPREGUCG Negative (Negative)
--- NOTE | 2025-04-02 13:59 | WPDANESEPPF ---
Anes - Initial Pre Proc Eval Procedure: Operation Date: 04/02/25 14:00 Proposed Procedures p Esophagogastroduodenoscopy & Colonoscopy - Kilo Gillis MD Date/Time: 04/02/25 13:59 Surgeon: Kilo Gillis MD Pre Op Diagnosis: Constipation, Melena, Left lower quadrant pain Patient Data Age: 49 Gender: F Height: 1.52 m Weight: 76.2 kg Last Vital Signs Temp 36.4 C L 04/02/25 13:49 Pulse 72 04/02/25 13:49 Resp 20 04/02/25 13:49 BP 134/87 04/02/25 13:49 Pulse Ox 99 04/02/25 13:49 O2 Del Method Room Air 04/02/25 13:49 Allergies Allergy/AdvReac Type Severity Reaction Status Date / Time latex Allergy Intermediate Rash Verified 04/02/25 13:46 Home Medications ?Medication ?Instructions ?Recorded ?Confirmed ?Type lisinopril 10 1 tablet PO DAILY 12/18/22 04/02/25 History mg-hydrochlorothiazide 12.5 mg tablet metformin 500 mg tablet,extended 500 mg PO DAILY 12/18/22 04/02/25 History release 24 hr magnesium 250 mg tablet 250 mg PO DAILY 07/22/23 04/02/25 History dicyclomine 10 mg capsule 10 mg PO TID PRN abdominal pain 01/27/25 04/02/25 Rx #90 caps Laboratory Tests 04/02/25 13:49 POC Urine HCG, Qual Negative (Negative) Patient hx anesthesia problems: none Family hx anesthesia problems: none Results Review: All pre-operative results and documents have been reviewed as part of the pre-operative evaluation. [facility] Past Medical History Medical History Weight loss Blood in stool Diabetes Hyperlipidemia HTN (hypertension) Surgical History Surgical History History of laparoscopic appendectomy 01/25/23 Social History Social History Smoking status: Never smoker Alcohol intake: never Substance use: never Substance use type: does not use Living arrangements: with family Spiritual care concerns: No Anes - Eval Final PreProcedure Day of Procedure 04/02/25 13:59 Patient weight: obese Heart: regular rate and rhythm Lungs: decreased breath sounds Airway: Mallampati scale class II Neurological: alert and oriented Last oral intake: >/= 8 hours ASA classification: III Emergent: no Anesthetic plan: proceed Anesthesia type and monitoring: general GIVS and standard monitoring Other findings: per director of consumer marketing Results Review: All pre-operative results and documents have been reviewed as part of the pre-operative evaluation. Informed Consent: The patient's anesthetic plan and its attendant risks and benefits were discussed with the patient/family/POA. Questions were solicited and answers provided to the satisfaction of the patient/family/POA.
[2025-04-02 14:05] LABS: Glucose Point of Care 102 mg/dl (65-105)
--- NOTE | 2025-04-02 14:17 | SUR.PREOP ---
pt speaks very little nigerien, accompanied by daughter shanita who is fluent in nigerien and moldovan and acted as golf coach. pt did sign moldovan consents for both procedures. able to ask questions through her daughter, voiced understanding of procedures.
--- NOTE | 2025-04-02 14:19 | PM.HPGS ---
History of Present Illness History of Present Illness Consent: Risks, benefits, and alternatives have been discussed and questions answered. Patient agrees to proceed with procedure. Chief complaint: Constipation, Melena, Left lower quadrant pain Narrative: Arti Rose is a 49 year old female here for egd and colonoscopy, llq for several months. 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 Repeat CT scan no major findings after surgery but still with similar discomfort. Review of Systems Review of Systems: All systems reviewed & are unremarkable except as noted in HPI and below PMFSH Past Medical History Medical History Weight loss Blood in stool Diabetes Hyperlipidemia HTN (hypertension) Surgical History Surgical History History of laparoscopic appendectomy 01/25/23 Social History Social History Smoking status: Never smoker Alcohol intake: never Substance use: never Substance use type: does not use Living arrangements: with family Spiritual care concerns: No Meds Home Medications and Allergies Home Medications ?Medication ?Instructions ?Recorded ?Confirmed ?Type lisinopril 10 1 tablet PO DAILY 12/18/22 04/02/25 History mg-hydrochlorothiazide 12.5 mg tablet metformin 500 mg tablet,extended 500 mg PO DAILY 12/18/22 04/02/25 History release 24 hr magnesium 250 mg tablet 250 mg PO DAILY 07/22/23 04/02/25 History dicyclomine 10 mg capsule 10 mg PO TID PRN abdominal pain 01/27/25 04/02/25 Rx #90 caps Allergies Allergy/AdvReac Type Severity Reaction Status Date / Time latex Allergy Intermediate Rash Verified 04/02/25 13:46 Vital Signs Vital Signs - 24 hr 04/02/25 13:49 Temperature 97.5 F L Pulse Rate 72 Respiratory Rate 20 Blood Pressure 134/87 Pulse Oximetry 99 Oxygen Delivery Room Air Exam Const: General: comfortable and no acute distress HENMT: Face/Nose/Sinus: Normal nares present Eyes: General: appearance normal, both eyes and all related structures Neck: Neck: no JVD Resp: Auscultation: clear to auscultation bilaterally Cardio: Rate: regular rate Rhythm: regular rhythm GI: Inspection: non-distended GI Palp: Yes Soft to palpation Skin: General skin exam: normal color Neuro: Speech: normal speech Extrem: General: normal to inspection Psych: Mental Status: mental status grossly normal Assessment and Plan Assessment and plan (1) LLQ abdominal pain: Code(s): R10.32 - Left lower quadrant pain Status: Acute Assessment and Plan: colonoscopy and egd (2) Blood in stool: Code(s): K92.1 - Melena Status: Acute
--- NOTE | 2025-04-02 14:33 | S_PTH ---
PATIENT: Arti Gandara LOC: [facility] Fu#:[id number] AGE/SX: 49/F ROOM: RE04/02/[address]: Kilo Gillis MD : 1975 BED: DIS: 04/02/2025 SPEC #: [id number] RECD: 04/05/25 07:45 STATUS: VAISHNAVI MAGDALENO #: [id number] JARROD: 04/02/25 14:[address]: Kilo Gillis DEPT: [facility] RECD BY: Fabi Costello ENTERED: 04/05/25 07:45 SP TYPE: Surgical OTHR DR: Madisyn Vides, PA Tissues: A - Gastric Biopsy B - Small Bowel Bx Procedures: Hematoxylin and Eosin Stain Gross and Microscopic Level 4
[2025-04-02 14:45] VITALS: BP 95/51; PULSE 70; RESP 26; O2SAT 100
[2025-04-02 14:55] VITALS: BP 108/52; PULSE 61; RESP 15; O2SAT 100
[2025-04-02 15:05] VITALS: BP 118/59; PULSE 60; RESP 15; O2SAT 100
== END 2025-04-02 15:20 | disposition home or self-care (01) ==
PROVIDERS: Anesthesiology; PCP Physician Assistant; Visit Provider Internal Medicine Gastroenterology
PROC: 0DJ08ZZ Inspection of Upper Intestinal Tract, Via Natural or Artificial Opening Endoscopic (ICD-10-PCS; CPT 45378; principal; 2025-04-02 14:00)
DX: K64.8 Other hemorrhoids (principal); E78.5 Hyperlipidemia, unspecified; I10 Essential (primary) hypertension; E11.9 Type 2 diabetes mellitus without complications; E66.9 Obesity, unspecified; Z68.32 Body mass index [BMI] 32.0-32.9, adult; Z79.84 Long term (current) use of oral hypoglycemic drugs; Z98.890 Other specified postprocedural states
CPT/HCPCS: 43239; 45378; 82948; 88305; J2003; J2704; J7120